=== PATIENT | male | born 1980 | race Caucasian/White ===

== ENCOUNTER 2021-08-03 14:12 | Inpatient (IN) ==
[2021-08-03] MEDS ORDERED: SODIUM CHLORIDE 0.9% 1000ML 1,000 ML IV STA (14:38)
[2021-08-03] MEDS ORDERED: SODIUM CHLORIDE 0.9% 1000ML 1,000 ML IV SCH (14:45)
[2021-08-03 14:46] LABS: Basophils # (auto) 0.01 K/uL (0-0.2); Basophils % (auto) 0.1 %; Hemoglobin 14.2 g/dL (14.0-18.0); Immature Granulocytes # (auto) 0.03 K/uL (0.00-0.02); Immature Granulocytes % (auto) 0.3 %; Lymphocytes # (auto) 0.76 K/uL (1.2-3.4); Lymphocytes % (auto) 6.9 %; Mean Corpuscular Hemoglobin 28.8 pg (25-34); Mean Corpuscular Hgb Conc 34.6 g/dL (32-36); Mean Corpuscular Volume 83.2 fL (80-100); Mean Platelet Volume 9.8 fL (7.4-10.4); Monocytes # (auto) 0.23 K/uL (0.11-0.59); Monocytes % (auto) 2.1 %; Neutrophils # (auto) 9.96 K/uL (1.4-6.5); Neutrophils % (auto) 90.6 %; Platelet Count 206 K/uL (130-400); RDW Coefficient of Variation 12.3 % (11.5-14.5); RDW Standard Deviation 37.4 fL (36.4-46.3); Red Blood Count 4.93 M/uL (4.7-6.1); White Blood Count 10.99 K/uL (4.8-10.8)
[2021-08-03 15:05] LABS: Alanine Aminotransferase 48 U/L (12-78); Albumin Level 2.9 gm/dl (3.4-5.0); Aspartate Aminotransferase 51 U/L (15-37); BUN Creatinine Ratio 19.4 (10-20); Blood Urea Nitrogen 21 mg/dl (7-18); Calcium 8.4 mg/dl (8.5-10.1); Carbon Dioxide 26 mmol/L (21-32); Chloride 103 mmol/L (98-107); Creatinine Clr Calc Pharmacy 110.2 ml/min; Est GFR (African American) 96.5 ml/min; Est GFR (Non-African American) 83.3 ml/min; Glucose 127 mg/dl (70-99); Magnesium 2.2 mg/dl (1.8-2.4); Potassium 3.6 mmol/L (3.5-5.1); Sodium 135 mmol/L (136-145)
--- NOTE | 2021-08-03 15:13 | Emergency Department Note ---
Impression & Plan Syncope and collapse, Pneumonia due to COVID-19 virus, Hypoxia ED Provider Note INFORMANT: Patient ED PROVIDER(S): Colin Morrison MD CHIEF COMPLAINT: Syncope PLAN: Disposition: Admitted Condition: Good Outpatient prescription management: none Referral: None MEDICAL DECISION MAKING: Patient presents to the ER for the third time this week. He has COVID-19. Chest x-ray was performed and revealed that he had slight congestion findings. CT imaging was done yesterday which revealed no evidence of PE. The patient noted a significant period of hypoxia at home. His O2 saturations were borderline in the emergency department. He was treated with IV Decadron. ECG revealed nonspecific changes laterally. Patient has normal cardiac monitoring. He was hydrated. I discussed further management in the hospital. Patient was in agreement. Consultation was made with the hospital service for patient evaluated in ER admitted for further management. Triage Nursing notes reviewed and agree them. Vital Signs: reviewed and remarkable for borderline oxygen levels Differential diagnosis: Vasovagal event, dehydration, infection, hypoglycemia, electrolyte abnormalities, cardiac sources, intracerebral event, pulmonary embolism, sei zure, toxicologic, neurologic, as well as other pathologies. Diagnostics interpreted by me: ECG: Twelve-lead ECG reveals normal sinus rhythm at [address] abnormality laterally. There is no evidence of ST elevation or depression. No PACs or PVCs. Normal QRS. Cardiac Monitoring: Cardiac monitoring ordered by me: The patient was placed on continuous cardiac monitoring and observed. It revealed a normal sinus rhythm at 72 beats per minute without ectopy or evidence of dysrhythmia. Imaging studies: Chest x-ray shows slight progression of his Covid pneumonia. HPI: The patient is a 40 year old male who presents to the Emergency Room with c omplaints of syncope. This started just prior to arrival and is resolved. The patient also notes the following associated symptoms, diaphoresis, shortness of breath, and hypoxia. The patient has been given fluid by EMS for relieving factors. Current pain is rated as 0/10. Patient was diagnosed with Covid. He was in the ER 4 days ago and work-up was unremarkable except for Covid pneumonia. He had an ER visit again yesterday as he had a difficult night 2 nights ago. He had negative work-up except for the Covid pneumonia. He was not hypoxic. CT angiogram did not reveal any evidence of PE. He stated that he was feeling better after discharge. Today he got up and felt short of breath and broke out in a sweat. He noted his pulse ox dipped down into the 80s. He became more lightheaded and sweaty. He passed out. Patient states after passing out his pulse oximetry was in the 70s. Pt denies LOC, headache, fevers, chills, diaphoresis, visual changes, neck pain, chest pain, breathing difficulties, nausea, vomiting, abdominal pain, back pain, melena, hematochezia, urinary symptoms, numbness, weakness, lymphadenopathy, rash, or other complaints. ROS: See above HPI for pertinent positives & negatives. A total of 10 systems reviewed and were otherwise negative. PAST MEDICAL HISTORY:See Below , COVID-19 PAST SURGICAL HISTORY:See Below, FAMILY HISTORY:See Below SOCIAL HISTORY:See Below, HOME MEDICATIONS:See Below ALLERGIES:See Below VITALS:See Below PHYSICAL EXAMINATION: GENERAL: Awake, alert, well-appearing, in no distress HENT: Normocephalic, atraumatic. Oropharynx unremarkable. EYES: Normal conjunctiva. Sclera non-icteric. NECK: Inspection normal. Non-tender. Supple. No nuchal rigidity. FROM. No masses. RESPIRATORY: Few scattered crackles. No wheezes. No rhonchi. Normal respiratory effort. CARDIAC: Normal rate. Normal rhythm. No murmurs. No rubs. Extremities warm and well perfused. Pulses equal. No JVD. GI: Soft, non-distended. No tenderness to palpation. No rebound or guarding. No masses. RECTAL: Deferred. MUSCULOSKELETAL: Atraumatic. Chest examination reveals no tenderness. The back is symmetrical on inspection without obvious abnormality. There is no CVA tenderness to palpation. No joint edema. LOWER EXTREMITIES: Calves are equal size bilaterally and non-tender. No edema. No discoloration. NEURO: Normal sensorium. No sensory or motor deficits noted. SKIN: No rash or jaundice noted. Colin Morrison MD Past Med/Surg History Medical History No significant medical problems Social History Smoking Status: Never smoker Hx Alcohol Use: Yes Alcohol type: beer Hx Substance Use: No Preferred Language: Maori Communication Ability: Effective Continuity Writer Required: No Beliefs That Will Affect Care: None Current Living Situation: Spouse and Family Current Living Situation Comment: 2 girls and . Other Information That Helps Us Care for You: No Feels Safe at Home: Yes Safety Concerns: Feels Safe At This Time Assistive Devices: None Allergies Allergies Allergy/AdvReac Type Severity Reaction Status Date / Time Sulfa (Sulfonamide Allergy Unknown HAPPENED Verified 08/03/21 17:50 Antibiotics) A CHILD SUTURE MATERIAL Allergy Intermediate HAPPENED Uncoded 08/03/21 17:50 WITH KNEE SURGERY-BAD REACTION Home Meds Home Medications Medication Instructions Recorded Confirmed acetaminophen 500 mg tablet 1,000 mg PO Q6H PRN 07/31/21 08/03/21 (Tylenol Extra Strength) ibuprofen 200 mg tablet (Advil) 400 mg PO Q6H PRN 07/31/21 08/03/21 Previous Rx's Medication Instructions Recorded albuterol sulfate 90 mcg/actuation 3 inh INHALATION Q6H #18 g 07/31/21 aerosol inhaler dexamethasone 6 mg tablet 6 mg PO DAILY #6 tab 07/31/21 (Decadron) Results & Data (ED) Vital Signs Vital Signs - 24 hr 08/03/21 14:00 08/03/21 14:38 Temperature 36.9 C Temperature Source Oral Pulse Rate 72 Pulse Rhythm Regular Pulse Strength Normal Respiratory Rate 18 Respiratory Effort / Characteristics Non-Labored Respiratory Depth Normal Blood Pressure 125/60 Blood Pressure Mean 81 Pulse Oximetry 92 93 Oxygen Delivery Method Room Air Sepsis New/Unexplained Change in Mental Status No Sepsis Action Taken by Nursing No Action Required Laboratory Data Result diagrams: 08/04/21 05:50 08/04/21 05:50 Lab Results 08/03/21 08/03/21 08/03/21 Range/Units 14:36 14:36 14:36 WBC 10.99 H (4.8-10.8) K/uL RBC 4.93 (4.7-6.1) M/uL Hgb 14.2 (14.0-18.0) g/dL Hct 41.0 L (42-52) % MCV 83.2 (80-100) fL MCH 28.8 (25-34) pg MCHC 34.6 (32-36) g/dL RDW Std Deviation 37.4 (36.4-46.3) fL RDW Coeff of Ayana 12.3 (11.5-14.5) % Plt Count 206 (130-400) K/uL MPV 9.8 (7.4-10.4) fL Immature Gran % (Auto) 0.3 % Neut % (Auto) 90.6 % Lymph % (Auto) 6.9 % Osborne % (Auto) 2.1 % Eos % (Auto) 0.0 % Baso % (Auto) 0.1 % Neut # (Auto) 9.96 H (1.4-6.5) K/uL Lymph # (Auto) 0.76 L (1.2-3.4) K/uL Osborne # (Auto) 0.23 (0.11-0.59) K/uL Eos # (Auto) 0.00 (0-0.5) K/uL Baso # (Auto) 0.01 (0-0.2) K/uL Immature Gran # (Auto) 0.03 H (0.00-0.02) K/uL Sodium 135 L (136-145) mmol/L Potassium 3.6 (3.5-5.1) mmol/L Chloride 103 (98-107) mmol/L Carbon Dioxide 26 (21-32) mmol/L Anion Gap 6.0 (3-11) BUN 21 H (7-18) mg/dl Creatinine 1.09 (0.6-1.4) mg/dl Est Cr Clr Drug Dosing 110.2 ml/min Est GFR ( Amer) 96.5 ml/min Est GFR (Non-Af Amer) 83.3 ml/min BUN/Creatinine Ratio 19.4 (10-20) Glucose 127 H (70-99) mg/dl Calcium 8.4 L (8.5-10.1) mg/dl Magnesium 2.2 (1.8-2.4) mg/dl Total Bilirubin 0.8 (0.2-1) mg/dl AST 51 H (15-37) U/L ALT 48 (12-78) U/L Alkaline Phosphatase 62 (45-117) U/L Troponin I < 0.015 (0-0.045) ng/ml Total Protein 6.5 (6.4-8.2) gm/dl Albumin 2.9 L (3.4-5.0) gm/dl Globulin 3.6 (2.5-4.0) gm/dl Albumin/Globulin Ratio 0.8 L (0.9-2) Procalcitonin 0.26 (0-0.5) ng/ml TSH 2.410 (0.300-4.500) uIu/ml Urine Color Urine Appearance (Clear) Urine pH (4.5-7.5) Ur Specific [place] (1.000-1.030) Urine Protein (Negative) Urine Glucose (UA) (Negative) Urine Ketones (Negative) Urine Blood (Negative) Urine Nitrite (Negative) Urine Bilirubin (Negative) Urine Urobilinogen (Negative) Ur Leukocyte Esterase (Negative) Urine WBC (Auto) (0-5) /hpf Urine RBC (Auto) (0-4) /hpf U Hyaline Cast (Auto) (0-5) /lpf U Epithel Cells (Auto) (0-5) /lpf Urine Bacteria (Auto) (Negative) Ur Renal Epithelial Cell (0-5) /lpf COVID-19 Eval Order SARS-CoV-2 (PCR) (Negative) 08/03/21 08/03/21 08/03/21 Range/Units 16:26 16:26 16:36 WBC (4.8-10.8) K/uL RBC (4.7-6.1) M/uL Hgb (14.0-18.0) g/dL Hct (42-52) % MCV (80-100) fL MCH (25-34) pg MCHC (32-36) g/dL RDW Std Deviation (36.4-46.3) fL RDW Coeff of Ayana (11.5-14.5) % Plt Count (130-400) K/uL MPV (7.4-10.4) fL Immature Gran % (Auto) % Neut % (Auto) % Lymph % (Auto) % Osborne % (Auto) % Eos % (Auto) % Baso % (Auto) % Neut # (Auto) (1.4-6.5) K/uL Lymph # (Auto) (1.2-3.4) K/uL Osborne # (Auto) (0.11-0.59) K/uL Eos # (Auto) (0-0.5) K/uL Baso # (Auto) (0-0.2) K/uL Immature Gran # (Auto) (0.00-0.02) K/uL Sodium (136-145) mmol/L Potassium (3.5-5.1) mmol/L Chloride (98-107) mmol/L Carbon Dioxide (21-32) mmol/L Anion Gap (3-11) BUN (7-18) mg/dl Creatinine (0.6-1.4) mg/dl Est Cr Clr Drug Dosing ml/min Est GFR ( Amer) ml/min Est GFR (Non-Af Amer) ml/min BUN/Creatinine Ratio (10-20) Glucose (70-99) mg/dl Calcium (8.5-10.1) mg/dl Magnesium (1.8-2.4) mg/dl Total Bilirubin (0.2-1) mg/dl AST (15-37) U/L ALT (12-78) U/L Alkaline Phosphatase (45-117) U/L Troponin I (0-0.045) ng/ml Total Protein (6.4-8.2) gm/dl Albumin (3.4-5.0) gm/dl Globulin (2.5-4.0) gm/dl Albumin/Globulin Ratio (0.9-2) Procalcitonin (0-0.5) ng/ml TSH (0.300-4.500) uIu/ml Urine Color Dark Yellow Urine Appearance Clear (Clear) Urine pH 6.0 (4.5-7.5) Ur Specific [place] 1.029 (1.000-1.030) Urine Protein Trace H (Negative) Urine Glucose (UA) Negative (Negative) Urine Ketones Trace H (Negative) Urine Blood Negative (Negative) Urine Nitrite Negative (Negative) Urine Bilirubin Negative (Negative) Urine Urobilinogen Negative (Negative) Ur Leukocyte Esterase Negative (Negative) Urine WBC (Auto) 1-5 (0-5) /hpf Urine RBC (Auto) 5-10 H (0-4) /hpf U Hyaline Cast (Auto) 0 (0-5) /lpf U Epithel Cells (Auto) >30 H (0-5) /lpf Urine Bacteria (Auto) Negative (Negative) Ur Renal Epithelial Cell 0-5 (0-5) /lpf COVID-19 Eval Order Covid19 at [facility] SARS-CoV-2 (PCR) POSITIVE A* (Negative) Administered Medications Albuterol (Albuterol Hfa 8 Gm Inhaler) 3 puffs INH QIDR JAMES Stop: 09/03/21 10:59 Last Admin: 08/04/21 20:03 Dose: 3 puffs Documented by: [id number] Admin: 08/04/21 15:37 Dose: 3 puffs Documented by: [id number] Admin: 08/04/21 11:24 Dose: 3 puffs Documented by: [id number] Calcium Carbonate (Calcium Carbonate 500 Mg Chewable Tab) 1,000 mg PO TID PRN PRN Reason: Indigestion Stop: 09/03/21 12:03 Last Admin: 08/04/21 20:51 Dose: 1,000 mg Documented by: [id number] Admin: 08/04/21 12:10 Dose: 1,000 mg Documented by: [id number] Enoxaparin Sodium (Enoxaparin Inj 40 Mg/0.4 Ml Syr) 40 mg SQ Q12H JAMES Stop: 09/03/21 20:59 Last Admin: 08/04/21 20:54 Dose: 40 mg Documented by: [id number] Furosemide (Furosemide 40 Mg/4 Ml Vial) 40 mg IV DAILY JAMES Stop: 09/03/21 14:59 Last Admin: 08/04/21 16:23 Dose: 40 mg Documented by: [id number] Guaifenesin (Guaifenesin 600 Mg Tabcr) 1,200 mg PO Q12 JAMES Stop: 09/03/21 20:59 Last Admin: 08/04/21 20:54 Dose: 1,200 mg Documented by: [id number] Dexamethasone 6 mg/ Syringe 1.5 mls @ 1 mls/min IV DAILY JAMES Stop: 08/10/21 08:59 Last Admin: 08/04/21 09:34 Dose: 1 mls/min Documented by: [id number] Pantoprazole Sodium (Pantoprazole 40 Mg Tab) 40 mg PO QAM JAMES Stop: 08/08/21 14:59 Last Admin: 08/04/21 17:31 Dose: 40 mg Documented by: [id number] Discontinued Medications Albuterol (Albuterol Hfa 8 Gm Inhaler) 3 puffs INH Q6R JAMES Stop: 09/03/21 00:59 Last Admin: 08/04/21 07:20 Dose: 3 puffs Documented by: [id number] Admin: 08/03/21 23:32 Dose: 3 puffs Documented by: [id number] Calcium Carbonate (Calcium Carbonate 500 Mg Chewable Tab) Confirm Administered Dose 1,000 mg .ROUTE .STK-MED ONE Stop: 08/04/21 12:08 Last Admin: 08/04/21 12:48 Dose: Not Given Documented by: [id number] Dexamethasone Sodium Phosphate (DexamethasonePf 10 Mg/Ml Vial) 6 mg IV NOW ONE Stop: 08/03/21 17:14 Last Admin: 08/03/21 17:30 Dose: 6 mg Documented by: [id number] Heparin Sodium (Porcine) (Heparin Sod 5,000 Unit/0.5 Ml Vial) 5,000 units SQ Q12 JAMES Stop: 09/02/21 22:37 Last Admin: 08/04/21 09:33 Dose: 5,000 units Documented by: [id number] Admin: 08/04/21 00:41 Dose: 5,000 units Documented by: [id number] Sodium Chloride (Nss 1000ml) 1,000 mls @ 999 mls/hr IV .Q1H1M JAMES Stop: 08/03/21 15:45 Last Infusion: 08/03/21 16:32 Dose: 0 mls/hr Documented by: [id number] Admin: 08/03/21 15:30 Dose: 999 mls/hr Documented by: [id number] Sodium Chloride (Nss 1000ml) 1,000 mls @ 125 mls/hr IV .Q8H STA Stop: 08/03/21 22:37 Last Infusion: 08/04/21 10:08 Dose: 0 mls/hr Documented by: [id number] Admin: 08/03/21 16:40 Dose: 125 mls/hr Documented by: [id number] Sodium Chloride (Nss 1000ml) 1,000 mls @ 125 mls/hr IV .Q8H JAMES Stop: 08/04/21 18:14 Last Infusion: 08/04/21 16:03 Dose: 0 mls/hr Documented by: [id number] Admin: 08/04/21 09:33 Dose: 125 mls/hr Documented by: [id number] Infusion: 08/04/21 07:29 Dose: 125 mls/hr Documented by: [id number] Admin: 08/03/21 23:29 Dose: 125 mls/hr Documented by: [id number] Infusion: 08/03/21 19:52 Dose: 0 mls/hr Documented by: [id number] Admin: 08/03/21 19:48 Dose: 125 mls/hr Documented by: [id number] Remdesivir 200 mg/ Sodium (Chloride) 250 mls @ 125 mls/hr IV ONE STA; Protocol Stop: 08/04/21 15:55 Last Infusion: 08/04/21 18:31 Dose: 0 mls/hr Documented by: [id number] Admin: 08/04/21 16:03 Dose: 125 mls/hr Documented by: [id number] Sodium Chloride (Sodium Chloride 0.9% 10ml Flush) 30 ml IV ONE ONE Stop: 08/04/21 16:01 Last Admin: 08/04/21 18:31 Dose: 30 ml Documented by: [id number] Discharge Plan Visit Data Chief Complaint: Syncope ED Provider: Colin Morrison Discharge Problem: Syncope and collapse, Pneumonia due to COVID-19 virus, Hypoxia Patient Disposition: Admitted As Inpatient Discharge Instructions Interventions: ED Discharge Assessment Last Done: 08/03/21 22:03
[2021-08-03 15:16] LABS: Albumin Globulin Ratio 0.8 (0.9-2); Alkaline Phosphatase 62 U/L (45-117); Bilirubin,Total 0.8 mg/dl (0.2-1); Globulin 3.6 gm/dl (2.5-4.0); Total Protein 6.5 gm/dl (6.4-8.2); Troponin I < 0.015 ng/ml (0-0.045)
--- NOTE | 2021-08-03 15:16 | XRay Report ---
XR chest 1V portable CLINICAL HISTORY: syncope, covid pneumonia COMPARISON STUDY: Chest radiograph July 31, 2021. Chest CT August 02, 2021. FINDINGS: Lung volumes are normal. Moderate bilateral airspace opacities have slightly progressed sin ce prior chest radiograph and chest CT.. There is no pneumothorax or pleural effusion. Cardiac size i s normal. Mediastinal contours are normal. There is no evidence for pulmonary edema. IMPRESSION: Slight progression of moderate bilateral airspace opacities consistent with viral pneumo juana. ACT 112: Negative or not required by law. Electronically signed by: Kwabena Alvarez M.D. 08/03/2021 3:15 PM
[2021-08-03 16:56] LABS: Appearance Urine Clear (Clear); Bacteria Urine Automated Negative (Negative); Bilirubin Urine Negative (Negative); Blood Urine Negative (Negative); Color Urine Dark Yellow; Epithelial Cell Urine Auto >30 /lpf (0-5); Glucose Urine UA Negative (Negative); Ketones Urine Trace (Negative); Leukocyte Esterase Urine Negative (Negative); Nitrite Urine Negative (Negative); Protein Urine Trace (Negative); Specific Gravity Urine 1.029 (1.000-1.030); Urobilinogen Urine Negative (Negative)
[2021-08-03 17:07] LABS: Cast Urine Automated 0 /lpf (0-5)
[2021-08-03 17:08] LABS: Renal Epithelial Cells Urine 0-5 /lpf (0-5)
[2021-08-03] MEDS ORDERED: dexAMETHasone**PF** 10 MG/ML VIAL IV ONE (17:13)
--- NOTE | 2021-08-03 17:23 | History & Physical Report ---
Date of Service August 03, 2021 Assessment & Plan (1) Pneumonia due to COVID-19 virus: Plan: - COVID-19 positive - Procalcitonin, blood culture x 2, LA, LDH, ferritin, Phos ordered as were not initially drawn - Lymphocytes 0.76, neutrophils 9.96 - CXR reviewed: showing slight progression of bilateral opacities suggestive of viral pneumonia - O2 sats at 98% on room air currently, patient was noted to be hypoxic at home in the 70s during his syncopal episode per his report. - WBC 11k - Decadron 6 mg IV daily. Has received 4 days of Decadron so far at home via p.o., will continue x6 days -Patient does not meet requirements for remdesivir or monoclonal antibody without oxygen needs. -Patient is unvaccinated -Patient is willing to be intubated in the event that he would require such (2) Syncope and collapse: Plan: -Check 2D echo - Mag 2.2 on admission, TSH 2.41 - EKG reviewed without acute ST wave changes, no signs of ischemia. -Continue on NSS at 125 x 3 L, BUN and creatinine slightly elevated at 1.09/21 respectively, no baseline in the chart to review -Follow with a.m. labs (3) Hypoxia: Plan: -Currently he is not hypoxic here however noted to be in the low 70s upon EMS arrival in the field -Currently not requiring supplemental O2, he will require a two-step prior to discharge to determine if he requires oxygen at home (4) Hyponatremia: Plan: -Likely secondary to acute dehydration, continue IV fluids as above, monitor with a.m. labs (5) COVID-19: Plan: -As above, acute DVT prophylaxis: - teds, scds, heparin subq CODE: Full code Dispo: From home, likely to remain in the hospital x 1-2 days History of Present Illness Primary Care Provider: Sana Rojas MD This is a 40 yo M without significant medical history who is unvaccinated for COVID-19 and contracted the virus. He developed symptoms on 07/25, with cough with mucous and high grade fever. Pt had a covid test done at home and resulted 07/27 as positive. Pt was seen for the first time in the ER on 07/31 due to worsening shortness of breath and was given decadron steroid pack and sent home as he was not hypoxic at that time. He then represented to the ER on 08/02 with chest pressure and worsening shortness of breath. He was not hypoxic, was in NSR during entire ER stay, and CTA was conducted to rule out PE and was negative. He was taking decardon and using a albuterol inhaler for management of his symptoms. Overnight he slept well, and felt he may be improving, but upon waking up was cool with a temp of 96.0. His pulse was low at that point. He noticed his pulse ox was at 92% at the lowest at home. Pt was walking ~10 feet today, felt SOB, sat down and he passed out for a few seconds. Denies trauma to the head or other injury. The event was witnessed by his . Patient was noted to have O2 sats in the 70s at that point in time, and she called EMS. Here in the ER he maintained sats at 93% on room air. He was given IV Decadron in the ER today. Pt lives at home with , two small children (ages 12 and 8). None of his family members have symptoms and are isolated. is vaccinated. He is unvaccinated. Family Hx: no known family hx of heart issues, stroke, DM II, lung diseases. Social Hx: does not drink more than a 6 pack of beer over course of a year. Smoked for a few years in college but does not smoke anymore. Denies illicit drug use. Allergies Allergy/AdvReac Type Severity Reaction Status Date / Time Sulfa (Sulfonamide Allergy Unknown HAPPENED Verified 08/03/21 17:50 Antibiotics) A CHILD SUTURE MATERIAL Allergy Intermediate HAPPENED Uncoded 08/03/21 17:50 WITH KNEE SURGERY-BAD REACTION Home Medications Medication Instructions Recorded Confirmed Type acetaminophen 500 mg tablet 1,000 mg PO Q6H PRN 07/31/21 08/03/21 History (Tylenol Extra Strength) albuterol sulfate 90 mcg/actuation 3 inh INHALATION Q6H #18 g 07/31/21 08/03/21 Rx aerosol inhaler dexamethasone 6 mg tablet 6 mg PO DAILY #6 tab 07/31/21 08/03/21 Rx (Decadron) ibuprofen 200 mg tablet (Advil) 400 mg PO Q6H PRN 10/05/21 10/08/21 History Past Med/Surg History Medical History No significant medical problems Social History Smoking Status: Never smoker Preferred Language: Mauritian Feels Safe at Home: Yes Review of Systems Review of Systems: Constitutional: + fever, sweats and chills Eyes: No diplopia, no worsening or blurred vision ENT: normal hearing, no trouble swallowing, no loss of taste or smell Respiratory: +cough, sputum, dyspnea at rest and on exertion Cardiovascular: No chest pain, tightness or palpitations Abdomen: No pain, nausea, vomiting, diarrhea or constipation Musculoskeletal: No joint pain, calf pain, swelling Neurologic: + generalized weakness, numbness/tingling, or balance problems Psychiatric: No anxiety or depression Skin: No rash or itch Physical Exam Physical Exam: Please refer to attending addendum for physical as I did not see the patient due to COVID-19 positive. Results & Data Results & Data ([facility]) Vital Signs (Past 12 Hours) Vital Signs Temp Pulse Pulse Resp BP BP Pulse Ox 08/03/21 17:10 65 18 122/69 98 08/03/21 17:00 67 14 122/69 96 08/03/21 16:00 67 20 128/71 99 08/03/21 15:30 67 19 123/70 96 08/03/21 15:00 69 19 128/72 96 08/03/21 14:38 93 08/03/21 14:00 36.9 C 72 18 125/60 92 Diagnostic Findings Chest X-Ray 08/03/21 14:38 XR chest 1V portable CLINICAL HISTORY: syncope, covid pneumonia COMPARISON STUDY: Chest radiograph July 31, 2021. Chest CT August 02, 2021. FINDINGS: Lung volumes are normal. Moderate bilateral airspace opacities have slightly progressed since prior chest radiograph and chest CT.. There is no pneumothorax or pleural effusion. Cardiac size is normal. Mediastinal contours are normal. There is no evidence for pulmonary edema. IMPRESSION: Slight progression of moderate bilateral airspace opacities consistent with viral pneumonia. ACT 112: Negative or not required by law. Electronically signed by: Kwabena Alvarez M.D. 08/03/2021 3:15 PM ECG Additional Comments: 03-AUG-2021 14:25:11 [facility]-EDSTAT ROUTINE RETRIEVAL Normal sinus rhythm Possible Left atrial enlargement Nonspecific T wave abnormality Abnormal ECG When compared with ECG of 02-AUG-2021 11:22, (unconfirmed) No significant change was found 25mm/s 10mm/mV 150Hz 9.0.9 12SL 241 VIVI: 11 Unconfirmed Vent. rate 69 BPM CA interval 150 ms QRS duration 90 ms QT/QTc 386/413 ms Code Status & VTE Plan Code Status Full code Supervising Physician Co-Signing Physician Notes Attending addendum The patient was seen and examined in the emergency room He has been complaining of fever, cough with shortness of breath for the last week or so Has been to ER 2-3 times prior to this visit Covid 19 has been positive without any desaturation On examination Flushed facies In distress Chestminimal crackles at the bases HeartS1-S2, regular Abdomenmildly distended, tender at epigastrium, bowel sounds present Extremitiesno edema Admission labs, imaging studies reviewed Has COVID-19 infection without desaturation Fever likely secondary to COVID-19 infection Agree with assessment and plan as outlined above by NORBERT Hodge Dr
[2021-08-03] MEDS: SODIUM CHLORIDE 0.9% 1000ML 1,000 ML IV SCH ×2 (19:48→23:29)
[2021-08-03] MEDS ORDERED: ONDANSETRON INJ 2 MG/ML 2 ML VIAL IV PRN (22:38)
[2021-08-03] MEDS ORDERED: ACETAMINOPHEN 500 MG TAB PO PRN (22:47)
[2021-08-03 22:59] LABS: C Reactive Protein 9.86 mg/dl (0-0.29); Ferritin 1893.6 ng/ml (8-388); Phosphorus 2.9 mg/dl (2.5-4.9)
[2021-08-03] MEDS: ALBUTEROL HFA 8 GM INHALER INH SCH (23:32)
[2021-08-04] MEDS: HEPARIN SOD 5,000 UNIT/0.5 ML VIAL SQ SCH ×2 (00:41→09:33)
[2021-08-04 06:24] LABS: Hemoglobin 13.7 g/dL (14.0-18.0); Mean Corpuscular Hemoglobin 28.9 pg (25-34); Mean Corpuscular Hgb Conc 35.1 g/dL (32-36); Mean Corpuscular Volume 82.3 fL (80-100); Mean Platelet Volume 10.2 fL (7.4-10.4); Platelet Count 242 K/uL (130-400); RDW Coefficient of Variation 12.5 % (11.5-14.5); RDW Standard Deviation 37.9 fL (36.4-46.3); Red Blood Count 4.74 M/uL (4.7-6.1); White Blood Count 10.71 K/uL (4.8-10.8)
[2021-08-04 07:01] LABS: Albumin Globulin Ratio 0.6 (0.9-2); Albumin Level 2.5 gm/dl (3.4-5.0); BUN Creatinine Ratio 19.5 (10-20); Bilirubin,Total 0.9 mg/dl (0.2-1); Calcium 8.4 mg/dl (8.5-10.1); Creatinine Clr Calc Pharmacy 144.5 ml/min; Est GFR (African American) 125.8 ml/min; Est GFR (Non-African American) 108.5 ml/min; Globulin 3.9 gm/dl (2.5-4.0); Magnesium 2.2 mg/dl (1.8-2.4); Potassium 4.2 mmol/L (3.5-5.1); Total Protein 6.4 gm/dl (6.4-8.2)
--- NOTE | 2021-08-04 07:06 | Electrocardiogram Report ---
Test Reason : Blood Pressure : / mmHG Vent. Rate : 069 BPM Atrial Rate : 069 BPM P-R Int : 150 ms QRS Dur : 090 ms QT Int : 386 ms P-R-T Axes : 040 030 -01 degrees QTc Int : 413 ms Normal sinus rhythm Possible Left atrial enlargement Nonspecific T wave abnormality Abnormal ECG When compared with ECG of 02-AUG-2021 11:22, (unconfirmed) No significant change was found Confirmed by Vijay Castillo ([id number]) on 08/04/2021 7:05:32 AM Referred By: Confirmed By:Sam Castillo
[2021-08-04 07:18] LABS: Estimated Average Glucose 117 mg/dl; Hemoglobin A1C 5.7 % (4.5-5.6)
[2021-08-04] MEDS: ALBUTEROL HFA 8 GM INHALER INH SCH ×4 (07:20→20:03)
[2021-08-04] MEDS: SODIUM CHLORIDE 0.9% 1000ML 1,000 ML IV SCH (09:33)
[2021-08-04] MEDS: dexAMETHasone 6 MG in SYRINGE 0 ML IV SCH (09:34)
[2021-08-04] MEDS ORDERED: CALCIUM CARBONATE 500 MG CHEWABLE TAB ONE (12:07)
[2021-08-04] MEDS: CALCIUM CARBONATE 500 MG CHEWABLE TAB PO PRN ×2 (12:10→20:51)
[2021-08-04] MEDS ORDERED: REMDESIVIR 200 MG in SODIUM CHLORIDE 0.9% 210 ML IV STA (13:56)
--- NOTE | 2021-08-04 14:52 | Hospitalist Progress Note ---
Date of Service August 04, 2021 Assessment & Plan (1) Pneumonia due to COVID-19 virus: Plan: -Not vaccinated for COVID-19 - COVID-19 positive on 07/27/2021 and also repeat test on admission -Was seen in ER on with increasing shortness of breath and was given Decad vipul and was sent home - Lymphocytes 0.76, neutrophils 9.96, CRP level is 9.86 and procalcitonin is normal as of 08/04/2021 -Repeat visit on 08/02 with more shortness of breath but was not hypoxic -Was admitted with increasing shortness of breath and as of today requiring up to 5 L of oxygen to maintain saturation - CXR reviewed: showing slight progression of bilateral opacities suggestive of viral pneumonia -Received Decadron 6 mg and will continue -We will give remdesivir and monitor CRP and LFTs -Condition has been deteriorating since admission-May need pulmonary evaluation (2) Syncope and collapse: Plan: -Check 2D echo: LV is normal in size, normal LV wall thickness, EF 60 to 65%, no significant valvular disease - Mag 2.2 on admission, TSH 2.41 - EKG reviewed without acute ST wave changes, no signs of ischemia. -Continue on NSS at 125 x 3 L, BUN and creatinine slightly elevated at 1.09/21 respectively, no baseline in the chart to review -Doubt any arrhythmia as the cause of syncope (3) Hypoxia: Plan: -Currently he is not hypoxic here however noted to be in the low 70s upon EMS arrival in the field -Currently not requiring supplemental O2, he will require a two-step prior to discharge to determine if he requires oxygen at home Currently requiring up to 5 L of oxygen to maintain saturation (4) Hyponatremia: Plan: -Likely secondary to acute dehydration, continue IV fluids as above, monitor with a.m. labs -Minimally low at 134 (5) COVID-19: Plan: -As above, acute DVT prophylaxis: - teds, scds, heparin subq -We will change to Lovenox CODE: Full code Admission and Anticipated Discharge Date Admission Date: August 03, 2021 Subjective 08/04/2021 The patient was seen and examined in telemetry unit and in Covid room He has been more short of breath today and has been requiring up to 5 L of oxygen to maintain saturation Is short of breath at rest and he is flushed Has cough but denies any chest pain Review of Systems Review of Systems: All systems reviewed and are unremarkable except as noted below Physical Exam Physical Exam: Lying in bed with moderate shortness of breath at rest Constitutional: well developed, well nourished, + ill appearing and + obese Eyes: PERRL, conjunctivae normal, anicteric sclerae ENMT: external ear and nose normal, oropharynx normal Neck: trachea midline, no thyromegaly Respiratory: + respiratory distress, + labored breathing and + cough Auscultation: + diminished lung sounds, + crackles (At the bases) and + rales Cardiovascular: Rate/Rhythm: regular rate and regular rhythm; not tachycardic Heart Sounds: normal S1 and normal S2; no murmur Gastrointestinal (Abdomen): Inspection/Auscultation: abdomen not distended Percussion/Palpation: abdomen soft; abdomen nontender Musculoskeletal: No acute arthritis in any joint Neurologic: Alert, awake and oriented x3 Psychiatric: A+Ox3, euthymic affect Results & Data Results & Data ([facility]) Vital Signs (Past 12 Hours) Vital Signs Temp Pulse Pulse Resp BP Pulse Ox 08/04/21 14:08 91 08/04/21 14:04 26 H 89 L 08/04/21 11:27 81 24 88 L 08/04/21 11:07 37.0 C 74 20 129/59 L 90 08/04/21 07:21 80 25 H 92 08/04/21 06:52 37.0 C 83 20 126/81 91 08/04/21 03:00 36.6 C 83 20 119/78 95 Laboratory Results Short CBC 08/03/21 08/04/21 Range/Units 14:36 05:50 WBC 10.99 H 10.71 (4.8-10.8) K/uL Hgb 14.2 13.7 L (14.0-18.0) g/dL Hct 41.0 L 39.0 L (42-52) % Plt Count 206 242 (130-400) K/uL BMP 08/03/21 08/04/21 14:36 05:50 Sodium 135 L 134 L Potassium 3.6 4.2 D Chloride 103 105 Carbon Dioxide 26 22 BUN 21 H 16 Creatinine 1.09 0.83 Glucose 127 H 119 H Calcium 8.4 L 8.4 L Cardiac Enzymes 08/03/21 Range/Units 14:36 Troponin I < 0.015 (0-0.045) ng/ml Liver Function 08/03/21 08/04/21 Range/Units 14:36 05:50 Total Bilirubin 0.8 0.9 (0.2-1) mg/dl AST 51 H 38 H (15-37) U/L ALT 48 40 (12-78) U/L Alkaline Phosphatase 62 62 (45-117) U/L Albumin 2.9 L 2.5 L (3.4-5.0) gm/dl Urine 08/03/21 Range/Units 16:36 Urine Color Dark Yellow Urine Appearance Clear (Clear) Urine pH 6.0 (4.5-7.5) Ur Specific [place] 1.029 (1.000-1.030) Urine Protein Trace H (Negative) Urine Glucose (UA) Negative (Negative) Medications Administered Current Inpatient Medications Acetaminophen (Acetaminophen 500 Mg Tab) 1,000 mg PO Q6H PRN PRN Reason: FEVER/PAIN Stop: 09/02/21 22:46 Albuterol (Albuterol Hfa 8 Gm Inhaler) 3 puffs INH QIDR JAMES Stop: 09/03/21 10:59 Last Admin: 08/04/21 11:24 Dose: 3 puffs Documented by: Calcium Carbonate (Calcium Carbonate 500 Mg Chewable Tab) 1,000 mg PO TID PRN PRN Reason: Indigestion Stop: 09/03/21 12:03 Last Admin: 08/04/21 12:10 Dose: 1,000 mg Documented by: Heparin Sodium (Porcine) (Heparin Sod 5,000 Unit/0.5 Ml Vial) 5,000 units SQ Q12 JAMES Stop: 09/02/21 22:37 Last Admin: 08/04/21 09:33 Dose: 5,000 units Documented by: Sodium Chloride (Nss 1000ml) 1,000 mls @ 125 mls/hr IV .Q8H [facility] Stop: 08/04/21 18:14 Last Admin: 08/04/21 09:33 Dose: 125 mls/hr Documented by: Dexamethasone 6 mg/ Syringe 1.5 mls @ 1 mls/min IV DAILY JAMES Stop: 08/10/21 08:59 Last Admin: 08/04/21 09:34 Dose: 1 mls/min Documented by: Remdesivir 200 mg/ Sodium (Chloride) 250 mls @ 125 mls/hr IV ONE STA; Protocol Stop: 08/04/21 15:55 Remdesivir 100 mg/ Sodium (Chloride) 250 mls @ 250 mls/hr IV Q24H JAMES; Protocol Stop: 08/08/21 12:59 Ondansetron HCl (Ondansetron Inj 2 Mg/Ml 2 Ml Vial) 4 mg IV Q4H PRN PRN Reason: Nausea And Vomiting Stop: 09/02/21 22:37 Sodium Chloride (Sodium Chloride 0.9% 10ml Flush) 30 ml IV Q24H JAMES Stop: 08/08/21 13:01 Sodium Chloride (Sodium Chloride 0.9% 10ml Flush) 30 ml IV ONE ONE Stop: 08/04/21 16:01
[2021-08-04] MEDS ORDERED: FUROSEMIDE 40 MG in SYRINGE 0 ML IV SCH (15:00)
[2021-08-04] MEDS ORDERED: SODIUM CHLORIDE 0.9% 10ML FLUSH IV ONE (16:00)
[2021-08-04] MEDS: FUROSEMIDE 40 MG/4 ML VIAL IV SCH (16:23)
[2021-08-04] MEDS: PANTOprazole 40 MG TAB PO SCH (17:31)
[2021-08-04] MEDS: ENOXAPARIN INJ 40 MG/0.4 ML SYR SQ SCH (20:54)
[2021-08-04] MEDS: guaiFENesin 600 MG TABCR PO SCH (20:54)
[2021-08-05] MEDS: ALBUTEROL HFA 8 GM INHALER INH SCH (07:22)
[2021-08-05 07:49] LABS: Basophils # (auto) 0.01 K/uL (0-0.2); Basophils % (auto) 0.1 %; Hematocrit (blood only) 41.6 % (42-52); Hemoglobin 14.2 g/dL (14.0-18.0); Immature Granulocytes # (auto) 0.04 K/uL (0.00-0.02); Immature Granulocytes % (auto) 0.4 %; Lymphocytes # (auto) 0.94 K/uL (1.2-3.4); Lymphocytes % (auto) 9.1 %; Mean Corpuscular Hemoglobin 28.8 pg (25-34); Mean Corpuscular Hgb Conc 34.1 g/dL (32-36); Mean Corpuscular Volume 84.4 fL (80-100); Mean Platelet Volume 10.2 fL (7.4-10.4); Monocytes # (auto) 0.36 K/uL (0.11-0.59); Monocytes % (auto) 3.5 %; Neutrophils # (auto) 8.96 K/uL (1.4-6.5); Neutrophils % (auto) 86.9 %; Platelet Count 269 K/uL (130-400); RDW Coefficient of Variation 12.6 % (11.5-14.5); RDW Standard Deviation 38.4 fL (36.4-46.3); Red Blood Count 4.93 M/uL (4.7-6.1); White Blood Count 10.31 K/uL (4.8-10.8)
[2021-08-05 08:07] LABS: Albumin Level 2.5 gm/dl (3.4-5.0); BUN Creatinine Ratio 24.9 (10-20); C Reactive Protein 12.3 mg/dl (0-0.29); Calcium 8.8 mg/dl (8.5-10.1); Creatinine Clr Calc Pharmacy 129.6 ml/min; Est GFR (African American) 120.1 ml/min; Est GFR (Non-African American) 103.6 ml/min; Potassium 4.5 mmol/L (3.5-5.1)
[2021-08-05 08:10] LABS: Albumin Globulin Ratio 0.6 (0.9-2); Bilirubin,Total 0.9 mg/dl (0.2-1); Globulin 4.2 gm/dl (2.5-4.0); Total Protein 6.7 gm/dl (6.4-8.2)
[2021-08-05] MEDS: PANTOprazole 40 MG TAB PO SCH (08:26)
[2021-08-05] MEDS: dexAMETHasone 6 MG in SYRINGE 0 ML IV SCH (08:26)
[2021-08-05] MEDS: ENOXAPARIN INJ 40 MG/0.4 ML SYR SQ SCH ×2 (08:26→20:26)
[2021-08-05] MEDS: guaiFENesin 600 MG TABCR PO SCH ×2 (08:26→20:28)
[2021-08-05] MEDS: FUROSEMIDE 40 MG/4 ML VIAL IV SCH (08:29)
[2021-08-05] MEDS ORDERED: ALBUTEROL HFA 8 GM INHALER INH PRN (10:31)
[2021-08-05] MEDS: REMDESIVIR 100 MG in SODIUM CHLORIDE 0.9% 230 ML IV SCH (13:06)
--- NOTE | 2021-08-05 13:24 | Pulmonary Consultation ---
Date of Consultation August 05, 2021 Assessment & Plan (1) Pneumonia due to COVID-19 virus: (2) Hypoxia: (3) SOB (shortness of breath): (4) Cough productive of purulent sputum: 40-year male with no significant past medical history who was admitted to the hospital due to COVID-19 viral pneumonia and acute hypoxemic respiratory failure. Continue current therapies including remdesivir, Decadron, pulmonary toileting, self proning and supplemental oxygen to maintain saturations above 90%. His chest imaging is consistent with COVID-19 viral pneumonia. His CRP is markedly elevated. He has severe disease. I discussed the risks and benefits regarding baricitinib therapy. Patient consents to receiving baricitinib 4 mg daily. Please keep a close eye on his creatinine and LFTs while on remdesivir and baricitinib. He denies any history of tuberculosis exposure. He had a mild dilation of the pulmonary artery trunk on CT chest imaging which is likely secondary to his acute hypoxemic process. Echo did not reveal any evidence of pulmonary hypertension. A repeat CT chest in 3 months can be considered to follow-up on the infiltrates and the pulmonary artery dilation. Continue with as needed IV diuretic therapy. Should he have a significant decline in his respiratory status, recommend consultation with the intensive care unit team. Pulmonary will sign off at this time. Please call with questions. Thank for the consultation. I did trauma counsellor the patient regarding his diagnosis and treatment plan and he expressed understanding. Greater than 50% of the time was spent [id number] with the patient counseling them on their diagnosis and treatment plan. This note was dictated using voice recognition software and may include grammatical errors, extra words, word substitutions and other inaccuracies due to errors in the voice recognition software and differences in speech patterns. History of Present Illness Reason for Consultation: COVID-19 viral pneumonia Attending Physician: Claudia Benitez MD History of Present Illness 40-year-old male with no significant past medical history who was admitted to the hospital on 08/03/2021. He developed symptoms late June including fevers and cough. He had a COVID-19 test was positive on 07/27/2021. He was seen due to worsening shortness of breath. He was in the ER on 3 separate occasions in the past week here at [facility]. He is currently requiring high flow oxygen at 8 L/min. He is proning. His O2 sats range from the high 80s to the low 90s. He notes that he is unvaccinated. His is vaccinated. He has 2 small children. He denies any history of drug or alcohol abuse. He is a non-smoker. He works as a [employer]. His CRP level is currently elevated to 12.30. AST is mildly elevated to 47. Hyponatremia is improved and his sodium level is 136. No significant leukocy tosis seen on labs. Procalcitonin 0.26. He is currently on remdesivir 100 mg daily and Decadron 6 mg daily. He is also receiving 40 mg daily of Lasix. He is complaining of sweating. He has had a cough with productive sputum. He feels less short of breath than he did on initial hospitalization. He had a syncopal event the day of admission while walking. An ambulance was called by his . Echo completed this admission demonstrated an EF of 60 to 65%. No pulmonary hypertension was seen. Chest CTA completed 08/02/2021 demonstrated multifocal groundglass opacities consistent with COVID-19 viral pneumonia. No PE was seen. Chest x-ray 08/03/2021 with mildly increased airspace opacities compared to prior chest x-ray from 07/31. He is 1.5 L positive on fluids since hospital admission. Allergies Allergy/AdvReac Type Severity Reaction Status Date / Time Sulfa (Sulfonamide Allergy Unknown HAPPENED Verified 08/03/21 17:50 Antibiotics) A CHILD SUTURE MATERIAL Allergy Intermediate HAPPENED Uncoded 08/03/21 17:50 WITH KNEE SURGERY-BAD REACTION Home Medications Medication Instructions Recorded Confirmed Type acetaminophen 500 mg tablet 1,000 mg PO Q6H PRN 07/31/21 08/03/21 History (Tylenol Extra Strength) albuterol sulfate 90 mcg/actuation 3 inh INHALATION Q6H #18 g 07/31/21 08/03/21 Rx aerosol inhaler dexamethasone 6 mg tablet 6 mg PO DAILY #6 tab 07/31/21 08/03/21 Rx (Decadron) ibuprofen 200 mg tablet (Advil) 400 mg PO Q6H PRN 07/31/21 08/03/21 History Patient History Medical History (Updated 08/05/21 @ 13:33 by Nestor Godwin MD) Cough productive of purulent sputum No significant medical problems Social History Smoking Status: Never smoker Hx Alcohol Use: Yes Alcohol type: beer Hx Substance Use: No Preferred Language: Swedish Communication Ability: Effective 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 Other Information That Helps Us Care for You: No Feels Safe at Home: Yes Safety Concerns: Feels Safe At This Time Assistive Devices: None Review of Systems Review of Systems: All systems reviewed & are unremarkable except as noted in HPI & below Physical Exam Physical Exam: Constitutional: Patient appears to be of their stated age. Patient is in no apparent distress. Patient is well-developed. Eyes: Pupils are equal round and reactive to light. Conjunctivae are normal. Anicteric sclera. Ears nose, mouth and throat: No obvious facial deformities. Neck: Trachea is midline. Visual inspection is normal. Respiratory: Diminished lung sounds bilaterally. No wheezes. Cardiovascular: Regular rate and rhythm. No murmurs. No edema. Gastrointestinal: Normal bowel sounds, soft, nontender and nondistended. No hepatosplenomegaly noted. Musculoskeletal: No cyanosis. Patient is able to move all extremities. Skin: No rashes, warm dry and intact. Neurologic: No obvious focal neurological deficits seen. Psychiatric: Alert and oriented x3 with a euthymic affect. Results & Data Results & Data ([facility]) Vital Signs (Past 12 Hours) Vital Signs Temp Pulse Pulse Resp BP Pulse Ox 08/05/21 08:37 98.1 F 77 77 26 H 121/71 91 08/05/21 07:22 58 L 22 95 08/05/21 03:00 98.4 F 60 28 H 103/58 L 89 L Laboratory Results Vital signs, labs and imaging personally reviewed PG Care Time/CCT Total # of Minutes Spent Total Time Spent with Patient: Total time spent is greater than 50% in coordination of care (as documented) at patient's floor/unit and/or counseling patient: Coding Level of Care Code 14031 Inpt Consult Level 5 Diagnoses Pneumonia due to COVID-19 virus U07.1; J12.82 Hypoxia R09.02 SOB (shortness of breath) R06.02 Cough productive of purulent sputum R05.8
--- NOTE | 2021-08-05 14:07 | Hospitalist Progress Note ---
Date of Service August 05, 2021 Assessment & Plan (1) Pneumonia due to COVID-19 virus: Plan: -Not vaccinated for COVID-19 - COVID-19 positive on 07/27/2021 and also repeat test on admission -Was seen in ER on with increasing shortness of breath and was given Deca dron and was sent home - Lymphocytes 0.76, neutrophils 9.96, CRP level is 9.86 and procalcitonin is normal as of 08/04/2021 -Repeat visit on 08/02 with more shortness of breath but was not hypoxic -Was admitted with increasing shortness of breath and as of today requiring up to 5 L of oxygen to maintain saturation - CXR reviewed: showing slight progression of bilateral opacities suggestive of viral pneumonia -Received Decadron 6 mg and will continue -We will give remdesivir and monitor CRP and LFTs -Condition has been deteriorating and requiring up to 10 L of oxygen to maintain saturation with CRP increase that 12.30 -Appreciate pulmonary input and recommendation of starting baricitinib -Has been on intravenous dexamethasone, remdesivir and baricitinib -Continue Lasix for now (2) Syncope and collapse: Plan: -Check 2D echo: LV is normal in size, normal LV wall thickness, EF 60 to 65%, no significant valvular disease - Mag 2.2 on admission, TSH 2.41 - EKG reviewed without acute ST wave changes, no signs of ischemia. -Continue on NSS at 125 x 3 L, BUN and creatinine slightly elevated at 1.09/21 respectively, no baseline in the chart to review -Doubt any arrhythmia as the cause of syncope (3) Hypoxia: Plan: -Currently he is not hypoxic here however noted to be in the low 70s upon EMS arrival in the field -Currently not requiring supplemental O2, he will require a two-step prior to discharge to determine if he requires oxygen at home Currently requiring up to 5 L of oxygen to maintain saturation Currently requiring up to 8 L of oxygen to maintain saturation (4) Hyponatremia: Plan: -Likely secondary to acute dehydration, continue IV fluids as above, monitor with a.m. labs -Minimally low at 134 -Has been on Lasix and will monitor PRP (5) COVID-19: Plan: -As above, acute DVT prophylaxis: - teds, scds, heparin subq -We will change to Lovenox CODE: Full code Admission and Anticipated Discharge Date Admission Date: August 03, 2021 Subjective 08/04/2021 The patient was seen and examined in telemetry unit and in Covid room He has been more short of breath today and has been requiring up to 5 L of oxygen to maintain saturation Is short of breath at rest and he is flushed Has cough but denies any chest pain 08/05/2021 The patient was seen and examined in telemetry unit and in the Covid room His condition has been deteriorating and now requiring up to 10 L of oxygen to maintain saturation Has cough with increasing shortness of breath Review of Systems Review of Systems: All systems reviewed and are unremarkable except as noted below Physical Exam Physical Exam: Lying in bed with moderate shortness of breath at rest Constitutional: well developed, well nourished, + ill appearing and + obese Eyes: PERRL, conjunctivae normal, anicteric sclerae ENMT: external ear and nose normal, oropharynx normal Neck: trachea midline, no thyromegaly Respiratory: + respiratory distress, + labored breathing and + cough Auscultation: + diminished lung sounds, + crackles (At the bases) and + rales Cardiovascular: Rate/Rhythm: regular rate and regular rhythm; not tachycardic Heart Sounds: normal S1 and normal S2; no murmur Gastrointestinal (Abdomen): Inspection/Auscultation: abdomen not distended Percussion/Palpation: abdomen soft; abdomen nontender Musculoskeletal: No acute arthritis in any joint Neurologic: Alert, awake and oriented x3. No focal sensory and motor deficit appreciated Psychiatric: A+Ox3, euthymic affect Results & Data Results & Data ([facility]) Vital Signs (Past 12 Hours) Vital Signs Temp Pulse Pulse Resp BP Pulse Ox 08/05/21 08:37 36.7 C 77 77 26 H 121/71 91 08/05/21 07:22 58 L 22 95 08/05/21 03:00 36.9 C 60 28 H 103/58 L 89 L Laboratory Results Short CBC 08/05/21 Range/Units 06:29 WBC 10.31 (4.8-10.8) K/uL Hgb 14.2 (14.0-18.0) g/dL Hct 41.6 L (42-52) % Plt Count 269 (130-400) K/uL BMP 08/05/21 06:29 Sodium 136 Potassium 4.5 Chloride 103 Carbon Dioxide 27 BUN 23 H Creatinine 0.91 Glucose 105 H Calcium 8.8 Liver Function 08/05/21 Range/Units 06:29 Total Bilirubin 0.9 (0.2-1) mg/dl AST 47 H (15-37) U/L ALT 55 (12-78) U/L Alkaline Phosphatase 65 (45-117) U/L Albumin 2.5 L (3.4-5.0) gm/dl Medications Administered Current Inpatient Medications Acetaminophen (Acetaminophen 500 Mg Tab) 1,000 mg PO Q6H PRN PRN Reason: FEVER/PAIN Stop: 09/02/21 22:46 Albuterol (Albuterol Hfa 8 Gm Inhaler) 3 puffs INH Q4R PRN PRN Reason: Shortness Of Breath Or Wheezing Stop: 09/04/21 10:30 Baricitinib (4 Mg Once Daily X14 Days) 4 mg PO DAILY JAMES; Protocol Stop: 08/19/21 13:59 Calcium Carbonate (Calcium Carbonate 500 Mg Chewable Tab) 1,000 mg PO TID PRN PRN Reason: Indigestion Stop: 09/03/21 12:03 Last Admin: 08/04/21 20:51 Dose: 1,000 mg Documented by: Enoxaparin Sodium (Enoxaparin Inj 40 Mg/0.4 Ml Syr) 40 mg SQ Q12H JAMES Stop: 09/03/21 20:59 Last Admin: 08/05/21 08:26 Dose: 40 mg Documented by: Furosemide (Furosemide 40 Mg/4 Ml Vial) 40 mg IV DAILY JAMES Stop: 09/03/21 14:59 Last Admin: 08/05/21 08:29 Dose: 40 mg Documented by: Guaifenesin (Guaifenesin 600 Mg Tabcr) 1,200 mg PO Q12 JAMES Stop: 09/03/21 20:59 Last Admin: 08/05/21 08:26 Dose: 1,200 mg Documented by: Dexamethasone 6 mg/ Syringe 1.5 mls @ 1 mls/min IV DAILY JAMES Stop: 08/10/21 08:59 Last Admin: 08/05/21 08:26 Dose: 1 mls/min Documented by: Remdesivir 100 mg/ Sodium (Chloride) 250 mls @ 250 mls/hr IV Q24H JAMES; Protocol Stop: 08/08/21 12:59 Last Admin: 10/10/21 13:06 Dose: 250 mls/hr Documented by: Ondansetron HCl (Ondansetron Inj 2 Mg/Ml 2 Ml Vial) 4 mg IV Q4H PRN PRN Reason: Nausea And Vomiting Stop: 09/02/21 22:37 Pantoprazole Sodium (Pantoprazole 40 Mg Tab) 40 mg PO QAM [facility] Stop: 08/08/21 14:59 Last Admin: 08/05/21 08:26 Dose: 40 mg Documented by: Sodium Chloride (Sodium Chloride 0.9% 10ml Flush) 30 ml IV Q24H [facility] Stop: 08/08/21 13:01
[2021-08-05] MEDS: SODIUM CHLORIDE 0.9% 10ML FLUSH IV SCH (14:12)
[2021-08-05] MEDS: 4 mg Once Daily x14 days PO SCH (14:12)
[2021-08-06 07:16] LABS: Basophils # (auto) 0.02 K/uL (0-0.2); Basophils % (auto) 0.2 %; Eosinophils # (auto) 0.01 K/uL (0-0.5); Eosinophils % (auto) 0.1 %; Immature Granulocytes # (auto) 0.08 K/uL (0.00-0.02); Immature Granulocytes % (auto) 0.7 %; Lymphocytes # (auto) 1.68 K/uL (1.2-3.4); Mean Corpuscular Hemoglobin 29.2 pg (25-34); Mean Corpuscular Hgb Conc 34.9 g/dL (32-36); Mean Corpuscular Volume 83.8 fL (80-100); Mean Platelet Volume 10.3 fL (7.4-10.4); Monocytes # (auto) 0.52 K/uL (0.11-0.59); Monocytes % (auto) 4.6 %; Neutrophils # (auto) 8.89 K/uL (1.4-6.5); Neutrophils % (auto) 79.4 %; Platelet Count 356 K/uL (130-400); RDW Coefficient of Variation 12.3 % (11.5-14.5); RDW Standard Deviation 37.7 fL (36.4-46.3); Red Blood Count 5.13 M/uL (4.7-6.1)
[2021-08-06 07:34] LABS: Albumin Level 2.6 gm/dl (3.4-5.0); BUN Creatinine Ratio 32.6 (10-20); Calcium 9.1 mg/dl (8.5-10.1); Est GFR (African American) 123.4 ml/min; Est GFR (Non-African American) 106.5 ml/min; Magnesium 2.7 mg/dl (1.8-2.4); Potassium 4.1 mmol/L (3.5-5.1)
[2021-08-06 07:36] LABS: Albumin Globulin Ratio 0.6 (0.9-2); Globulin 4.3 gm/dl (2.5-4.0); Phosphorus 4.1 mg/dl (2.5-4.9); Total Protein 6.9 gm/dl (6.4-8.2)
[2021-08-06] MEDS: guaiFENesin 600 MG TABCR PO SCH ×2 (09:26→19:46)
[2021-08-06] MEDS: PANTOprazole 40 MG TAB PO SCH (09:27)
[2021-08-06] MEDS: 4 mg Once Daily x14 days PO SCH (09:27)
[2021-08-06] MEDS: ENOXAPARIN INJ 40 MG/0.4 ML SYR SQ SCH ×2 (09:28→19:45)
[2021-08-06] MEDS: dexAMETHasone 6 MG in SYRINGE 0 ML IV SCH (09:36)
[2021-08-06] MEDS: FUROSEMIDE 40 MG/4 ML VIAL IV SCH (09:39)
[2021-08-06] MEDS: REMDESIVIR 100 MG in SODIUM CHLORIDE 0.9% 230 ML IV SCH (12:07)
[2021-08-06] MEDS: SODIUM CHLORIDE 0.9% 10ML FLUSH IV SCH (13:19)
--- NOTE | 2021-08-06 14:39 | Hospitalist Progress Note ---
Date of Service August 06, 2021 Assessment & Plan (1) Pneumonia due to COVID-19 virus: Plan: -Not vaccinated for COVID-19 - COVID-19 positive on 07/27/2021 and also repeat test on admission -Was seen in ER on with increasing shortness of breath and was given Deca dron and was sent home - Lymphocytes 0.76, neutrophils 9.96, CRP level is 9.86 and procalcitonin is normal as of 08/04/2021 -Repeat visit on 08/02 with more shortness of breath but was not hypoxic -Was admitted with increasing shortness of breath and as of today requiring up to 5 L of oxygen to maintain saturation - CXR reviewed: showing slight progression of bilateral opacities suggestive of viral pneumonia -Continue with remdesivir/Decadron. Did receive baricitinib. Appreciate pulmonary medicine input. Continue with IV Lasix 40 mg daily. Continue to monitor ins and outs along with daily weights. (2) Syncope and collapse: Plan: -Check 2D echo: LV is normal in size, normal LV wall thickness, EF 60 to 65%, no significant valvular disease - Mag 2.2 on admission, TSH 2.41 - EKG reviewed without acute ST wave changes, no signs of ischemia. -Remains bradycardic. Denies any episodes of dizziness. We will continue to monitor. (3) Hypoxia: Plan: Currently remains on 8 L of nasal cannula. Reports shortness of breath is improved. (4) Hyponatremia: Plan: -Likely secondary to acute dehydration, continue IV fluids as above, monitor with a.m. labs -Minimally low at 134 -Has been on Lasix and will monitor PRP (5) COVID-19: Plan: -As above, acute DVT prophylaxis: - teds, scds, Lovenox CODE: Full code Admission and Anticipated Discharge Date Admission Date: August 03, 2021 Subjective Doing okay this morning. States he feels better reports shortness of breath is better. Does have nonproductive cough. Appetite is improving along with taste. Currently on 8 L of nasal cannula. Review of Systems Review of Systems: All systems reviewed & are unremarkable except as noted in HPI & below Physical Exam Physical Exam: General: A&Ox3 HENT: NCAT, MMM, EOMI Eyes: PERRLA Neck: Supple, normal range of motion CVS: normal rate and rhythm Resp: b/l good breath sounds Abdomen: Soft, ND/NT, +BS Extremities: No c/c/e Neuro: face symmetric, no gross focal deficit appreciated Skin: warm and dry MSK: no joint swelling/erythema Results & Data Results & Data ([facility]) Vital Signs (Past 12 Hours) Vital Signs Temp Pulse Pulse Pulse Resp BP Pulse Ox 08/06/21 11:00 37.0 C 47 L 19 116/70 95 08/06/21 10:00 53 L 98 08/06/21 08:00 45 L 95 08/06/21 07:23 36.9 C 59 L 18 108/56 L 92 08/06/21 07:00 43 L 89 L 08/06/21 03:55 36.6 C 64 20 109/72 92
[2021-08-07 06:41] LABS: Calcium 8.6 mg/dl (8.5-10.1); Creatinine Clr Calc Pharmacy 115.7 ml/min; Est GFR (African American) 115.4 ml/min; Est GFR (Non-African American) 99.6 ml/min
[2021-08-07] MEDS ORDERED: SODIUM CHLORIDE 0.65% NA SOLN 45 ML (OCEAN) PRN (09:12)
[2021-08-07] MEDS: guaiFENesin 600 MG TABCR PO SCH ×2 (09:16→20:35)
[2021-08-07] MEDS: PANTOprazole 40 MG TAB PO SCH (09:17)
[2021-08-07] MEDS: ENOXAPARIN INJ 40 MG/0.4 ML SYR SQ SCH ×2 (09:18→20:36)
[2021-08-07] MEDS: dexAMETHasone 6 MG in SYRINGE 0 ML IV SCH (09:23)
[2021-08-07] MEDS: 4 mg Once Daily x14 days PO SCH (09:50)
[2021-08-07] MEDS: FUROSEMIDE 40 MG/4 ML VIAL IV SCH (09:51)
[2021-08-07] MEDS: REMDESIVIR 100 MG in SODIUM CHLORIDE 0.9% 230 ML IV SCH (12:07)
[2021-08-07 12:08] LABS: Basophils # (auto) 0.01 K/uL (0-0.2); Basophils % (auto) 0.1 %; Eosinophils # (auto) 0.02 K/uL (0-0.5); Eosinophils % (auto) 0.2 %; Hematocrit (blood only) 43.5 % (42-52); Hemoglobin 15.5 g/dL (14.0-18.0); Immature Granulocytes # (auto) 0.14 K/uL (0.00-0.02); Immature Granulocytes % (auto) 1.2 %; Lymphocytes # (auto) 0.67 K/uL (1.2-3.4); Lymphocytes % (auto) 5.5 %; Mean Corpuscular Hemoglobin 29.3 pg (25-34); Mean Corpuscular Volume 82.2 fL (80-100); Monocytes % (auto) 4.1 %; Neutrophils # (auto) 10.76 K/uL (1.4-6.5); Neutrophils % (auto) 88.9 %; Platelet Count 377 K/uL (130-400); RDW Coefficient of Variation 12.2 % (11.5-14.5); RDW Standard Deviation 36.4 fL (36.4-46.3); Red Blood Count 5.29 M/uL (4.7-6.1)
[2021-08-07 12:49] LABS: Mean Corpuscular Hgb Conc 35.6 g/dL (32-36)
[2021-08-07] MEDS: SODIUM CHLORIDE 0.9% 10ML FLUSH IV SCH (13:21)
[2021-08-07] MEDS ORDERED: COUGH DROP (SUGAR FREE) LOZ 24 LOZ/1 BOX BUCCAL ONE (13:26)
--- NOTE | 2021-08-07 14:08 | Hospitalist Progress Note ---
Date of Service August 07, 2021 Assessment & Plan (1) Pneumonia due to COVID-19 virus: Plan: -Not vaccinated for COVID-19 - COVID-19 positive on 07/27/2021 and also repeat test on admission -Was seen in ER on with increasing shortness of breath and was given Deca dron and was sent home - Lymphocytes 0.76, neutrophils 9.96, CRP level is 9.86 and procalcitonin is normal as of 08/04/2021 -Repeat visit on 08/02 with more shortness of breath but was not hypoxic -Was admitted with increasing shortness of breath and as of today requiring up to 5 L of oxygen to maintain saturation - CXR reviewed: showing slight progression of bilateral opacities suggestive of viral pneumonia -Continue with remdesivir/Decadron. - C/w baricitinib. Appreciate pulmonary medicine input. Continue with IV Lasix 40 mg daily. Continue to monitor ins and outs along with daily weights. (2) Syncope and collapse: Plan: -Check 2D echo: LV is normal in size, normal LV wall thickness, EF 60 to 65%, no significant valvular disease - Mag 2.2 on admission, TSH 2.41 - EKG reviewed without acute ST wave changes, no signs of ischemia. (3) Hypoxia: Plan: Currently remains on 10 L of nasal cannula. Reports shortness of breath is improved. (4) Hyponatremia: Plan: -Likely secondary to acute dehydration, continue IV fluids as above, monitor with a.m. labs -Today at 133 -Has been on Lasix and will monitor PRP (5) COVID-19: Plan: -As above, acute DVT prophylaxis: - teds, scds, Lovenox CODE: Full code Admission and Anticipated Discharge Date Admission Date: August 03, 2021 Subjective Patient had a rough night. He was struggling to sleep last night due to anxiety and persistent productive cough. She is also reported to have nasal bleeding reports he had a small clot. This morning patient is on 10 L of nasal cannula. Reports he feels better. Shortness of breath is better. However he does have persistent productive cough. Reports appetite is improving. Rest of the review of system is negative. Review of Systems Review of Systems: All systems reviewed & are unremarkable except as noted in HPI & below Physical Exam Physical Exam: General: A&Ox3 HENT: NCAT, MMM, EOMI Eyes: PERRLA Neck: Supple, normal range of motion CVS: normal rate and rhythm Resp: b/l good breath sounds Abdomen: Soft, ND/NT, +BS Extremities: No c/c/e Neuro: face symmetric, no gross focal deficit appreciated Skin: warm and dry MSK: no joint swelling/erythema Results & Data Results & Data ([facility]) Vital Signs (Past 12 Hours) Vital Signs Temp Pulse Pulse Resp BP Pulse Ox 08/07/21 10:52 36.8 C 82 22 116/67 92 08/07/21 07:00 36.6 C 69 81 28 H 113/65 91
[2021-08-07] MEDS: hydrOXYzine HCl 10 MG TAB PO PRN (20:35)
[2021-08-08] MEDS: OXYMETAZOLINE 0.05% 30 ML BTL PRN ×2 (06:42→19:45)
[2021-08-08] MEDS: dexAMETHasone 6 MG in SYRINGE 0 ML IV SCH (08:20)
[2021-08-08] MEDS: guaiFENesin 600 MG TABCR PO SCH ×2 (08:21→21:01)
[2021-08-08] MEDS: PANTOprazole 40 MG TAB PO SCH (08:21)
[2021-08-08] MEDS: ENOXAPARIN INJ 40 MG/0.4 ML SYR SQ SCH ×2 (08:21→21:03)
[2021-08-08] MEDS: FUROSEMIDE 40 MG/4 ML VIAL IV SCH (09:07)
[2021-08-08] MEDS: 4 mg Once Daily x14 days PO SCH (09:07)
[2021-08-08] MEDS: REMDESIVIR 100 MG in SODIUM CHLORIDE 0.9% 230 ML IV SCH (11:46)
[2021-08-08] MEDS: SODIUM CHLORIDE 0.9% 10ML FLUSH IV SCH (11:46)
--- NOTE | 2021-08-08 16:38 | Hospitalist Progress Note ---
Date of Service August 08, 2021 Assessment & Plan (1) Pneumonia due to COVID-19 virus: Plan: -Not vaccinated for COVID-19 - COVID-19 positive on 07/27/2021 and also repeat test on admission -Was seen in ER on with increasing shortness of breath and was given Deca dron and was sent home - Lymphocytes 0.76, neutrophils 9.96, CRP level is 9.86 and procalcitonin is normal as of 08/04/2021 -Repeat visit on 08/02 with more shortness of breath but was not hypoxic -Was admitted with increasing shortness of breath and as of today requiring up to 5 L of oxygen to maintain saturation - CXR reviewed: showing slight progression of bilateral opacities suggestive of viral pneumonia -Continue with remdesivir/Decadron. - C/w baricitinib. Appreciate pulmonary medicine input. Continue with IV Lasix 40 mg daily. Continue to monitor ins and outs along with daily weights. Cumulative balance is -2090. We will continue Lasix and supportive care (2) Syncope and collapse: Plan: -Check 2D echo: LV is normal in size, normal LV wall thickness, EF 60 to 65%, no significant valvular disease - Mag 2.2 on admission, TSH 2.41 - EKG reviewed without acute ST wave changes, no signs of ischemia. (3) Hypoxia: Plan: Currently remains on 10 L of nasal cannula. Reports shortness of breath is improved. (4) Hyponatremia: Plan: -Likely secondary to acute dehydration, continue IV fluids as above, monitor with a.m. labs -Today at 133 -Has been on Lasix and will monitor PRP -Sodium at 133 as of 08/08/2021 (5) COVID-19: Plan: -As above, acute DVT prophylaxis: - teds, scds, Lovenox CODE: Full code Admission and Anticipated Discharge Date Admission Date: August 03, 2021 Subjective 08/04/2021 The patient was seen and examined in telemetry unit and in Covid room He has been more short of breath today and has been requiring up to 5 L of oxygen to maintain saturation Is short of breath at rest and he is flushed Has cough but denies any chest pain 08/05/2021 The patient was seen and examined in telemetry unit and in the Covid room His condition has been deteriorating and now requiring up to 10 L of oxygen to maintain saturation Has cough with increasing shortness of breath 08/08/2021 The patient was seen and examined in telemetry unit and in the Covid room He has been feeling better compared with yesterday Still requiring about 7 L of oxygen to maintain saturation Review of Systems Review of Systems: All systems reviewed and are unremarkable except as noted below Physical Exam Physical Exam: Lying in bed with moderate shortness of breath at rest Constitutional: well developed, well nourished, + ill appearing and + obese Eyes: PERRL, conjunctivae normal, anicteric sclerae ENMT: external ear and nose normal, oropharynx normal Neck: trachea midline, no thyromegaly Respiratory: + respiratory distress, + labored breathing and + cough Auscultation: + diminished lung sounds, + crackles (At the bases) and + rales Cardiovascular: Rate/Rhythm: regular rate and regular rhythm; not tachycardic Heart Sounds: normal S1 and normal S2; no murmur Gastrointestinal (Abdomen): Inspection/Auscultation: abdomen not distended Percussion/Palpation: abdomen soft; abdomen nontender Musculoskeletal: No acute arthritis in any joint Neurologic: Alert, awake and oriented x3. No focal sensory or motor deficit appreciated Psychiatric: A+Ox3, euthymic affect Results & Data Results & Data ([facility]) Vital Signs (Past 12 Hours) Vital Signs Temp Pulse Pulse Pulse Resp BP Pulse Ox 08/08/21 16:00 65 08/08/21 15:28 36.9 C 58 L 18 115/66 96 08/08/21 11:50 36.9 C 68 20 108/79 92 08/08/21 08:00 68 08/08/21 07:57 36.6 C 74 16 121/62 93 Pulse Ox 08/08/21 16:00 92 08/08/21 15:28 08/08/21 11:50 08/08/21 08:00 08/08/21 07:57 Diagnostic Findings Current Inpatient Medications Acetaminophen (Acetaminophen 500 Mg Tab) 1,000 mg PO Q6H PRN PRN Reason: FEVER/PAIN Stop: 09/02/21 22:46 Last Admin: 08/08/21 00:05 Dose: 1,000 mg Documented by: Albuterol (Albuterol Hfa 8 Gm Inhaler) 3 puffs INH Q4R PRN PRN Reason: Shortness Of Breath Or Wheezing Stop: 09/04/21 10:30 Baricitinib (4 Mg Once Daily X14 Days) 4 mg PO DAILY [facility]; Protocol Stop: 08/19/21 13:59 Last Admin: 08/08/21 09:07 Dose: 4 mg Documented by: Calcium Carbonate (Calcium Carbonate 500 Mg Chewable Tab) 1,000 mg PO TID PRN PRN Reason: Indigestion Stop: 09/03/21 12:03 Last Admin: 08/04/21 20:51 Dose: 1,000 mg Documented by: Enoxaparin Sodium (Enoxaparin Inj 40 Mg/0.4 Ml Syr) 40 mg SQ Q12H [facility] Stop: 09/03/21 20:59 Last Admin: 08/08/21 08:21 Dose: 40 mg Documented by: Furosemide (Furosemide 40 Mg/4 Ml Vial) 40 mg IV DAILY [facility] Stop: 09/03/21 14:59 Last Admin: 08/08/21 09:07 Dose: 40 mg Documented by: Guaifenesin (Guaifenesin 600 Mg Tabcr) 1,200 mg PO Q12 [facility] Stop: 09/03/21 20:59 Last Admin: 08/08/21 08:21 Dose: 1,200 mg Documented by: Hydroxyzine HCl (Hydroxyzine Hcl 10 Mg Tab) 10 mg PO Q8H PRN PRN Reason: Anxiety Stop: 09/06/21 11:26 Last Admin: 08/07/21 20:35 Dose: 10 mg Documented by: Dexamethasone 6 mg/ Syringe 1.5 mls @ 1 mls/min IV DAILY [facility] Stop: 08/10/21 08:59 Last Admin: 08/08/21 08:20 Dose: 1 mls/min Documented by: Ondansetron HCl (Ondansetron Inj 2 Mg/Ml 2 Ml Vial) 4 mg IV Q4H PRN PRN Reason: Nausea And Vomiting Stop: 09/02/21 22:37 Oxymetazoline HCl (Oxymetazoline 0.05% 30 Ml Btl) 1 sprays NA DAILY PRN PRN Reason: Nasal Congestion Stop: 09/07/21 04:29 Last Admin: 08/08/21 06:42 Dose: 1 sprays Documented by: Sodium Chloride (Sodium Chloride 0.65% Na Soln 45 Ml ([place])) 1 sprays NA NOW PRN PRN Reason: Dryness Stop: 09/06/21 09:11 Last Admin: 08/07/21 09:51 Dose: 1 sprays Documented by:
[2021-08-08] MEDS: hydrOXYzine HCl 10 MG TAB PO PRN (21:01)
[2021-08-09 06:41] LABS: Calcium 8.9 mg/dl (8.5-10.1); Creatinine Clr Calc Pharmacy 112.1 ml/min; Est GFR (African American) 111.1 ml/min; Est GFR (Non-African American) 95.9 ml/min; Potassium 3.8 mmol/L (3.5-5.1)
[2021-08-09 06:42] LABS: C Reactive Protein 14.3 mg/dl (0-0.29); Phosphorus 2.8 mg/dl (2.5-4.9)
[2021-08-09] MEDS: hydrOXYzine HCl 10 MG TAB PO PRN ×2 (08:26→20:51)
[2021-08-09] MEDS: dexAMETHasone 6 MG in SYRINGE 0 ML IV SCH (08:26)
[2021-08-09] MEDS: OXYMETAZOLINE 0.05% 30 ML BTL PRN (08:27)
[2021-08-09] MEDS: guaiFENesin 600 MG TABCR PO SCH ×2 (08:27→20:50)
[2021-08-09] MEDS: ENOXAPARIN INJ 40 MG/0.4 ML SYR SQ SCH ×2 (08:28→20:51)
[2021-08-09] MEDS: 4 mg Once Daily x14 days PO SCH (09:37)
[2021-08-09] MEDS: FUROSEMIDE 40 MG/4 ML VIAL IV SCH (09:37)
--- NOTE | 2021-08-09 16:01 | Hospitalist Progress Note ---
Date of Service August 09, 2021 Assessment & Plan (1) Pneumonia due to COVID-19 virus: Plan: -Not vaccinated for COVID-19 - COVID-19 positive on 07/27/2021 and also repeat test on admission -Was seen in ER on with increasing shortness of breath and was given Deca dron and was sent home - Lymphocytes 0.76, neutrophils 9.96, CRP level is 9.86 and procalcitonin is normal as of 08/04/2021 -Repeat visit on 08/02 with more shortness of breath but was not hypoxic -Was admitted with increasing shortness of breath and as of today requiring up to 5 L of oxygen to maintain saturation - CXR reviewed: showing slight progression of bilateral opacities suggestive of viral pneumonia -Continue with remdesivir/Decadron. - C/w baricitinib. Appreciate pulmonary medicine input. Continue with IV Lasix 40 mg daily. Continue to monitor ins and outs along with daily weights. Cumulative balance is -2090. We will continue Lasix and supportive care Has been getting better but still requiring about 8 L of oxygen to maintain saturation Proning as advised Denies any other symptoms except shortness of breath-we will repeat chest x-ray to evaluate pneumonia (2) Syncope and collapse: Plan: -Check 2D echo: LV is normal in size, normal LV wall thickness, EF 60 to 65%, no significant valvular disease - Mag 2.2 on admission, TSH 2.41 - EKG reviewed without acute ST wave changes, no signs of ischemia. (3) Hypoxia: Plan: Currently remains on 10 L of nasal cannula. Reports shortness of breath is improved. (4) Hyponatremia: Plan: -Likely secondary to acute dehydration, continue IV fluids as above, monitor with a.m. labs -Today at 133 -Has been on Lasix and will monitor PRP -Sodium at 133 as of 08/08/2021 (5) COVID-19: Plan: -As above, acute DVT prophylaxis: - teds, scds, Lovenox CODE: Full code Discussed with the Admission and Anticipated Discharge Date Admission Date: August 03, 2021 Subjective 08/04/2021 The patient was seen and examined in telemetry unit and in Covid room He has been more short of breath today and has been requiring up to 5 L of oxygen to maintain saturation Is short of breath at rest and he is flushed Has cough but denies any chest pain 08/05/2021 The patient was seen and examined in telemetry unit and in the Covid room His condition has been deteriorating and now requiring up to 10 L of oxygen to maintain saturation Has cough with increasing shortness of breath 08/08/2021 The patient was seen and examined in telemetry unit and in the Covid room He has been feeling better compared with yesterday Still requiring about 7 L of oxygen to maintain saturation 08/09/2021 The patient was seen and examined in telemetry unit and in the Covid room He has been feeling a little better Still requiring 8 L of oxygen to maintain saturation Has cough Review of Systems Review of Systems: All systems reviewed and are unremarkable except as noted below Physical Exam Physical Exam: Lying in bed with moderate shortness of breath at rest Constitutional: well developed, well nourished, + ill appearing and + obese Eyes: PERRL, conjunctivae normal, anicteric sclerae ENMT: external ear and nose normal, oropharynx normal Neck: trachea midline, no thyromegaly Respiratory: + respiratory distress, + labored breathing and + cough Auscultation: + diminished lung sounds, + crackles (At the bases) and + rales Cardiovascular: Rate/Rhythm: regular rate and regular rhythm; not tachycardic Heart Sounds: normal S1 and normal S2; no murmur Gastrointestinal (Abdomen): Inspection/Auscultation: abdomen not distended Percussion/Palpation: abdomen soft; abdomen nontender Musculoskeletal: No acute arthritis in any joint Neurologic: Alert, awake and oriented x3 Psychiatric: A+Ox3, euthymic affect Results & Data Results & Data ([facility]) Vital Signs (Past 12 Hours) Vital Signs Temp Pulse Pulse Resp BP Pulse Ox 08/09/21 15:25 36.8 C 70 18 110/63 93 08/09/21 12:00 36.8 C 69 18 106/67 90 08/09/21 07:35 63 08/09/21 07:24 37.0 C 74 18 95/54 L 91 08/09/21 04:00 36.9 C 80 24 99/57 L 91 Laboratory Results [facility] 08/09/21 05:38 Sodium 132 L Potassium 3.8 Chloride 99 Carbon Dioxide 28 BUN 28 H Creatinine 0.97 Glucose 111 H Calcium 8.9 Medications Administered Current Inpatient Medications Acetaminophen (Acetaminophen 500 Mg Tab) 1,000 mg PO Q6H PRN PRN Reason: FEVER/PAIN Stop: 09/02/21 22:46 Last Admin: 08/08/21 00:05 Dose: 1,000 mg Documented by: Albuterol (Albuterol Hfa 8 Gm Inhaler) 3 puffs INH Q4R PRN PRN Reason: Shortness Of Breath Or Wheezing Stop: 09/04/21 10:30 Baricitinib (4 Mg Once Daily X14 Days) 4 mg PO DAILY [facility]; Protocol Stop: 08/19/21 13:59 Last Admin: 08/09/21 09:37 Dose: 4 mg Documented by: Calcium Carbonate (Calcium Carbonate 500 Mg Chewable Tab) 1,000 mg PO TID PRN PRN Reason: Indigestion Stop: 09/03/21 12:03 Last Admin: 08/04/21 20:51 Dose: 1,000 mg Documented by: Enoxaparin Sodium (Enoxaparin Inj 40 Mg/0.4 Ml Syr) 40 mg SQ Q12H [facility] Stop: 09/03/21 20:59 Last Admin: 08/09/21 08:28 Dose: 40 mg Documented by: Furosemide (Furosemide 40 Mg/4 Ml Vial) 40 mg IV DAILY [facility] Stop: 09/03/21 14:59 Last Admin: 08/09/21 09:37 Dose: 40 mg Documented by: Guaifenesin (Guaifenesin 600 Mg Tabcr) 1,200 mg PO Q12 [facility] Stop: 09/03/21 20:59 Last Admin: 08/09/21 08:27 Dose: 1,200 mg Documented by: Hydroxyzine HCl (Hydroxyzine Hcl 10 Mg Tab) 10 mg PO Q8H PRN PRN Reason: Anxiety Stop: 09/06/21 11:26 Last Admin: 08/09/21 08:26 Dose: 10 mg Documented by: Dexamethasone 6 mg/ Syringe 1.5 mls @ 1 mls/min IV DAILY [facility] Stop: 08/10/21 08:59 Last Admin: 08/09/21 08:26 Dose: 1 mls/min Documented by: Ondansetron HCl (Ondansetron Inj 2 Mg/Ml 2 Ml Vial) 4 mg IV Q4H PRN PRN Reason: Nausea And Vomiting Stop: 09/02/21 22:37 Oxymetazoline HCl (Oxymetazoline 0.05% 30 Ml Btl) 1 sprays NA DAILY PRN PRN Reason: Nasal Congestion Stop: 09/07/21 04:29 Last Admin: 08/09/21 08:27 Dose: 1 sprays Documented by: Sodium Chloride (Sodium Chloride 0.65% Na Soln 45 Ml ([place])) 1 sprays NA NOW PRN PRN Reason: Dryness Stop: 09/06/21 09:11 Last Admin: 08/07/21 09:51 Dose: 1 sprays Documented by:
--- NOTE | 2021-08-09 17:05 | XRay Report ---
XR chest 1V portable HISTORY: Worsening shortness of breath. Covid pneumonia. COMPARISON: Chest 08/03/2021. FINDINGS: Patchy multifocal airspace opacities most pronounced within the lower lung zones. This has progressed in the interval. No pleural fusions. No pneumothorax. The heart is normal in size. IMPRESSION: Interval progression of the moderate multifocal viral pneumonia. ACT 112: Negative or not required by law. Electronically signed by: Heriberto Avila M.D. 08/09/2021 5:03 PM
[2021-08-10] MEDS: 4 mg Once Daily x14 days PO SCH (08:15)
[2021-08-10] MEDS: FUROSEMIDE 40 MG/4 ML VIAL IV SCH (08:15)
[2021-08-10] MEDS: ENOXAPARIN INJ 40 MG/0.4 ML SYR SQ SCH ×2 (08:16→21:13)
[2021-08-10] MEDS: guaiFENesin 600 MG TABCR PO SCH ×2 (08:16→21:14)
--- NOTE | 2021-08-10 15:11 | Hospitalist Progress Note ---
Date of Service August 10, 2021 Assessment & Plan (1) Pneumonia due to COVID-19 virus: Plan: -Not vaccinated for COVID-19 - COVID-19 positive on 07/27/2021 and also repeat test on admission -Was seen in ER on with increasing shortness of breath and was given Deca dron and was sent home - Lymphocytes 0.76, neutrophils 9.96, CRP level is 9.86 and procalcitonin is normal as of 08/04/2021 -Repeat visit on 08/02 with more shortness of breath but was not hypoxic -Was admitted with increasing shortness of breath and as of today requiring up to 5 L of oxygen to maintain saturation - CXR reviewed: showing slight progression of bilateral opacities suggestive of viral pneumonia -Continue with remdesivir/Decadron. - C/w baricitinib. Appreciate pulmonary medicine input. Continue with IV Lasix 40 mg daily. Continue to monitor ins and outs along with daily weights. Cumulative balance is -2090. We will continue Lasix and supportive care Has been getting better but still requiring about 8 L of oxygen to maintain saturation Proning as advised Chest x-ray did not show any improvement but clinically he has been feeling much better Requiring about 5 L oxygen to maintain saturation We will continue current management (2) Syncope and collapse: Plan: -Check 2D echo: LV is normal in size, normal LV wall thickness, EF 60 to 65%, no significant valvular disease - Mag 2.2 on admission, TSH 2.41 - EKG reviewed without acute ST wave changes, no signs of ischemia. (3) Hypoxia: Plan: Currently remains on 10 L of nasal cannula. Reports shortness of breath is improved. (4) Hyponatremia: Plan: -Likely secondary to acute dehydration, continue IV fluids as above, monitor with a.m. labs -Today at 133 -Has been on Lasix and will monitor PRP -Sodium at 133 as of 08/08/2021 (5) COVID-19: Plan: -As above, acute DVT prophylaxis: - teds, scds, Lovenox CODE: Full code Discussed with the again today Admission and Anticipated Discharge Date Admission Date: August 03, 2021 Subjective 08/04/2021 The patient was seen and examined in telemetry unit and in Covid room He has been more short of breath today and has been requiring up to 5 L of oxygen to maintain saturation Is short of breath at rest and he is flushed Has cough but denies any chest pain 08/05/2021 The patient was seen and examined in telemetry unit and in the Covid room His condition has been deteriorating and now requiring up to 10 L of oxygen to maintain saturation Has cough with increasing shortness of breath 08/08/2021 The patient was seen and examined in telemetry unit and in the Covid room He has been feeling better compared with yesterday Still requiring about 7 L of oxygen to maintain saturation 08/09/2021 The patient was seen and examined in telemetry unit and in the Covid room He has been feeling a little better Still requiring 8 L of oxygen to maintain saturation Has cough 08/10/2021 The patient was seen and examined in telemetry unit and in the Covms room He has been feeling much better today Chest x-ray showed little worsening pneumonia but clinically he is better and is requiring about 5 L of oxygen to maintain saturation Review of Systems Review of Systems: All systems reviewed and are unremarkable except as noted below Physical Exam Physical Exam: Lying in bed with moderate shortness of breath at rest Constitutional: well developed, well nourished, + ill appearing and + obese Eyes: PERRL, conjunctivae normal, anicteric sclerae ENMT: external ear and nose normal, oropharynx normal Neck: trachea midline, no thyromegaly Respiratory: + respiratory distress, + labored breathing and + cough Auscultation: + diminished lung sounds, + crackles (At the bases) and + rales Cardiovascular: Rate/Rhythm: regular rate and regular rhythm; not tachycardic Heart Sounds: normal S1 and normal S2; no murmur Gastrointestinal (Abdomen): Inspection/Auscultation: abdomen not distended Percussion/Palpation: abdomen soft; abdomen nontender Musculoskeletal: No acute arthritis in any joint Neurologic: Alert, awake and oriented x3 Psychiatric: A+Ox3, euthymic affect Results & Data Results & Data ([facility]) Vital Signs (Past 12 Hours) Vital Signs Temp Pulse Pulse Pulse Resp BP BP 08/10/21 13:34 08/10/21 11:29 36.4 C L 78 21 92/50 L 08/10/21 10:41 08/10/21 07:23 36.7 C 66 19 110/65 08/10/21 07:00 70 08/10/21 04:00 37.0 C 74 19 108/60 Pulse Ox Pulse Ox 08/10/21 13:34 94 08/10/21 11:29 95 08/10/21 10:41 94 08/10/21 07:23 95 08/10/21 07:00 08/10/21 04:00 91 Medications Administered Current Inpatient Medications Acetaminophen (Acetaminophen 500 Mg Tab) 1,000 mg PO Q6H PRN PRN Reason: FEVER/PAIN Stop: 09/02/21 22:46 Last Admin: 08/08/21 00:05 Dose: 1,000 mg Documented by: Albuterol (Albuterol Hfa 8 Gm Inhaler) 3 puffs INH Q4R PRN PRN Reason: Shortness Of Breath Or Wheezing Stop: 09/04/21 10:30 Baricitinib (4 Mg Once Daily X14 Days) 4 mg PO DAILY [facility]; Protocol Stop: 08/19/21 13:59 Last Admin: 08/10/21 08:15 Dose: 4 mg Documented by: Calcium Carbonate (Calcium Carbonate 500 Mg Chewable Tab) 1,000 mg PO TID PRN PRN Reason: Indigestion Stop: 09/03/21 12:03 Last Admin: 08/04/21 20:51 Dose: 1,000 mg Documented by: Enoxaparin Sodium (Enoxaparin Inj 40 Mg/0.4 Ml Syr) 40 mg SQ Q12H [facility] Stop: 09/03/21 20:59 Last Admin: 08/10/21 08:16 Dose: 40 mg Documented by: Furosemide (Furosemide 40 Mg/4 Ml Vial) 40 mg IV DAILY [facility] Stop: 09/03/21 14:59 Last Admin: 08/10/21 08:15 Dose: 40 mg Documented by: Guaifenesin (Guaifenesin 600 Mg Tabcr) 1,200 mg PO Q12 [facility] Stop: 09/03/21 20:59 Last Admin: 08/10/21 08:16 Dose: 1,200 mg Documented by: Hydroxyzine HCl (Hydroxyzine Hcl 10 Mg Tab) 10 mg PO Q8H PRN PRN Reason: Anxiety Stop: 09/06/21 11:26 Last Admin: 08/09/21 20:51 Dose: 10 mg Documented by: Ondansetron HCl (Ondansetron Inj 2 Mg/Ml 2 Ml Vial) 4 mg IV Q4H PRN PRN Reason: Nausea And Vomiting Stop: 09/02/21 22:37 Oxymetazoline HCl (Oxymetazoline 0.05% 30 Ml Btl) 1 sprays NA DAILY PRN PRN Reason: Nasal Congestion Stop: 09/07/21 04:29 Last Admin: 08/09/21 08:27 Dose: 1 sprays Documented by: Sodium Chloride (Sodium Chloride 0.65% Na Soln 45 Ml ([place])) 1 sprays NA NOW PRN PRN Reason: Dryness Stop: 09/06/21 09:11 Last Admin: 08/07/21 09:51 Dose: 1 sprays Documented by:
[2021-08-10] MEDS: hydrOXYzine HCl 10 MG TAB PO PRN (21:24)
[2021-08-11 08:01] LABS: Albumin Level 2.4 gm/dl (3.4-5.0); BUN Creatinine Ratio 28.8 (10-20); Creatinine Clr Calc Pharmacy 127.9 ml/min; Est GFR (African American) 124.6 ml/min; Est GFR (Non-African American) 107.5 ml/min; Magnesium 2.6 mg/dl (1.8-2.4); Potassium 3.6 mmol/L (3.5-5.1)
[2021-08-11 08:08] LABS: Albumin Globulin Ratio 0.5 (0.9-2); Bilirubin,Total 0.8 mg/dl (0.2-1); Globulin 4.6 gm/dl (2.5-4.0); Phosphorus 3.9 mg/dl (2.5-4.9)
[2021-08-11] MEDS: ENOXAPARIN INJ 40 MG/0.4 ML SYR SQ SCH ×2 (08:27→20:06)
[2021-08-11] MEDS: guaiFENesin 600 MG TABCR PO SCH ×2 (08:28→20:06)
[2021-08-11] MEDS: FUROSEMIDE 40 MG/4 ML VIAL IV SCH (08:30)
[2021-08-11] MEDS: 4 mg Once Daily x14 days PO SCH (09:28)
--- NOTE | 2021-08-11 14:11 | Hospitalist Progress Note ---
Date of Service August 11, 2021 Assessment & Plan (1) Pneumonia due to COVID-19 virus: Plan: -Not vaccinated for COVID-19 - COVID-19 positive on 07/27/2021 and also repeat test on admission -Was seen in ER on with increasing shortness of breath and was given Deca dron and was sent home - Lymphocytes 0.76, neutrophils 9.96, CRP level is 9.86 and procalcitonin is normal as of 08/04/2021 -Repeat visit on 08/02 with more shortness of breath but was not hypoxic -Was admitted with increasing shortness of breath and as of today requiring up to 5 L of oxygen to maintain saturation - CXR reviewed: showing slight progression of bilateral opacities suggestive of viral pneumonia -Continue with remdesivir/Decadron. - C/w baricitinib. Appreciate pulmonary medicine input. Continue with IV Lasix 40 mg daily. Continue to monitor ins and outs along with daily weights. Cumulative balance is -2090. We will continue Lasix and supportive care Has been getting better but still requiring about 8 L of oxygen to maintain saturation Proning as advised Chest x-ray did not show any improvement but clinically he has been feeling much better Clinically much better today and is on 4 L oxygen to maintain saturation We will get to a step O2 saturation tomorrow and if oxygen requirements are less than or equal to 4 L he will be discharged home (2) Syncope and collapse: Plan: -Check 2D echo: LV is normal in size, normal LV wall thickness, EF 60 to 65%, no significant valvular disease - Mag 2.2 on admission, TSH 2.41 - EKG reviewed without acute ST wave changes, no signs of ischemia. (3) Hypoxia: Plan: Currently remains on 10 L of nasal cannula. Reports shortness of breath is improved. (4) Hyponatremia: Plan: -Likely secondary to acute dehydration, continue IV fluids as above, monitor with a.m. labs -Today at 133 -Has been on Lasix and will monitor PRP -Sodium at 133 as of 08/08/2021 (5) COVID-19: Plan: -As above, acute DVT prophylaxis: - teds, scds, Lovenox CODE: Full code Discussed with the again today Admission and Anticipated Discharge Date Admission Date: August 03, 2021 Subjective 08/04/2021 The patient was seen and examined in telemetry unit and in Covid room He has been more short of breath today and has been requiring up to 5 L of oxygen to maintain saturation Is short of breath at rest and he is flushed Has cough but denies any chest pain 08/05/2021 The patient was seen and examined in telemetry unit and in the Covid room His condition has been deteriorating and now requiring up to 10 L of oxygen to maintain saturation Has cough with increasing shortness of breath 08/08/2021 The patient was seen and examined in telemetry unit and in the Covid room He has been feeling better compared with yesterday Still requiring about 7 L of oxygen to maintain saturation 08/09/2021 The patient was seen and examined in telemetry unit and in the Covid room He has been feeling a little better Still requiring 8 L of oxygen to maintain saturation Has cough 08/10/2021 The patient was seen and examined in telemetry unit and in the Covid room He has been feeling much better today Chest x-ray showed little worsening pneumonia but clinically he is better and is requiring about 5 L of oxygen to maintain saturation 08/11/2021 The patient was seen and examined in telemetry unit and in the Covid room He has been feeling much better and has been requiring about 4 L of oxygen to maintain saturation Denies any other symptoms Review of Systems Review of Systems: All systems reviewed and are unremarkable except as noted below Physical Exam Physical Exam: Lying in bed with moderate shortness of breath at rest Constitutional: well developed, well nourished, + ill appearing and + obese Eyes: PERRL, conjunctivae normal, anicteric sclerae ENMT: external ear and nose normal, oropharynx normal Neck: trachea midline, no thyromegaly Respiratory: + respiratory distress, + labored breathing and + cough Auscultation: + diminished lung sounds, + crackles (At the bases) and + rales Cardiovascular: Rate/Rhythm: regular rate and regular rhythm; not tachycardic Heart Sounds: normal S1 and normal S2; no murmur Gastrointestinal (Abdomen): Inspection/Auscultation: abdomen not distended Percussion/Palpation: abdomen soft; abdomen nontender Neurologic: Alert, awake and oriented x3. No focal sensory or motor deficit appreciated Psychiatric: A+Ox3, euthymic affect Results & Data Results & Data ([facility]) Vital Signs (Past 12 Hours) Vital Signs Temp Pulse Pulse Resp BP BP Pulse Ox 08/11/21 11:58 36.8 C 76 20 97/66 L 93 08/11/21 07:45 37.1 C 54 L 22 109/55 L 94 08/11/21 05:50 37.1 C 72 16 99/64 L 90 Laboratory Results BMP 08/11/21 06:32 Sodium 134 L Potassium 3.6 Chloride 99 Carbon Dioxide 28 BUN 25 H Creatinine 0.85 Glucose 107 H Calcium 9.0 Liver Function 08/11/21 Range/Units 06:32 Total Bilirubin 0.8 (0.2-1) mg/dl AST 30 (15-37) U/L ALT 98 H (12-78) U/L Alkaline Phosphatase 77 (45-117) U/L Albumin 2.4 L (3.4-5.0) gm/dl Medications Administered Current Inpatient Medications Acetaminophen (Acetaminophen 500 Mg Tab) 1,000 mg PO Q6H PRN PRN Reason: FEVER/PAIN Stop: 09/02/21 22:46 Last Admin: 08/08/21 00:05 Dose: 1,000 mg Documented by: Albuterol (Albuterol Hfa 8 Gm Inhaler) 3 puffs INH Q4R PRN PRN Reason: Shortness Of Breath Or Wheezing Stop: 09/04/21 10:30 Baricitinib (4 Mg Once Daily X14 Days) 4 mg PO DAILY JMAES; Protocol Stop: 08/19/21 13:59 Last Admin: 08/11/21 09:28 Dose: 4 mg Documented by: Calcium Carbonate (Calcium Carbonate 500 Mg Chewable Tab) 1,000 mg PO TID PRN PRN Reason: Indigestion Stop: 09/03/21 12:03 Last Admin: 08/04/21 20:51 Dose: 1,000 mg Documented by: Enoxaparin Sodium (Enoxaparin Inj 40 Mg/0.4 Ml Syr) 40 mg SQ Q12H JAMES Stop: 09/03/21 20:59 Last Admin: 08/11/21 08:27 Dose: 40 mg Documented by: Furosemide (Furosemide 40 Mg/4 Ml Vial) 40 mg IV DAILY JAMES Stop: 09/03/21 14:59 Last Admin: 08/11/21 08:30 Dose: 40 mg Documented by: Guaifenesin (Guaifenesin 600 Mg Tabcr) 1,200 mg PO Q12 JAMES Stop: 09/03/21 20:59 Last Admin: 08/11/21 08:28 Dose: 1,200 mg Documented by: Hydroxyzine HCl (Hydroxyzine Hcl 10 Mg Tab) 10 mg PO Q8H PRN PRN Reason: Anxiety Stop: 09/06/21 11:26 Last Admin: 08/10/21 21:24 Dose: 10 mg Documented by: Ondansetron HCl (Ondansetron Inj 2 Mg/Ml 2 Ml Vial) 4 mg IV Q4H PRN PRN Reason: Nausea And Vomiting Stop: 09/02/21 22:37 Oxymetazoline HCl (Oxymetazoline 0.05% 30 Ml Btl) 1 sprays NA DAILY PRN PRN Reason: Nasal Congestion Stop: 09/07/21 04:29 Last Admin: 08/09/21 08:27 Dose: 1 sprays Documented by: Sodium Chloride (Sodium Chloride 0.65% Na Soln 45 Ml ([place])) 1 sprays NA NOW PRN PRN Reason: Dryness Stop: 09/06/21 09:11 Last Admin: 08/07/21 09:51 Dose: 1 sprays Documented by:
[2021-08-12 07:53] LABS: BUN Creatinine Ratio 20.2 (10-20); Calcium 9.2 mg/dl (8.5-10.1); Creatinine Clr Calc Pharmacy 123.6 ml/min; Est GFR (African American) 122.8 ml/min; Potassium 3.8 mmol/L (3.5-5.1)
[2021-08-12] MEDS: 4 mg Once Daily x14 days PO SCH (08:07)
[2021-08-12] MEDS: guaiFENesin 600 MG TABCR PO SCH (08:08)
[2021-08-12] MEDS: ENOXAPARIN INJ 40 MG/0.4 ML SYR SQ SCH (08:09)
[2021-08-12] MEDS: FUROSEMIDE 40 MG/4 ML VIAL IV SCH (08:10)
--- NOTE | 2021-08-12 12:53 | Hospitalist Progress Note ---
Date of Service August 12, 2021 Assessment & Plan (1) Pneumonia due to COVID-19 virus: Plan: -Not vaccinated for COVID-19 - COVID-19 positive on 07/27/2021 and also repeat test on admission -Was seen in ER on with increasing shortness of breath and was given Deca dron and was sent home - Lymphocytes 0.76, neutrophils 9.96, CRP level is 9.86 and procalcitonin is normal as of 08/04/2021 -Repeat visit on 08/02 with more shortness of breath but was not hypoxic -Was admitted with increasing shortness of breath and as of today requiring up to 5 L of oxygen to maintain saturation - CXR reviewed: showing slight progression of bilateral opacities suggestive of viral pneumonia -Continue with remdesivir/Decadron. - C/w baricitinib. Appreciate pulmonary medicine input. Continue with IV Lasix 40 mg daily. Continue to monitor ins and outs along with daily weights. Cumulative balance is -2090. We will continue Lasix and supportive care Has been getting better but still requiring about 8 L of oxygen to maintain saturation Proning as advised Chest x-ray did not show any improvement but clinically he has been feeling much better He is much better today and has been saturating on room air at rest He underwent to do steps O2 saturation test and he will require 1 L of oxygen with ambulation He will be discharged home this afternoon (2) Syncope and collapse: Plan: -Check 2D echo: LV is normal in size, normal LV wall thickness, EF 60 to 65%, no significant valvular disease - Mag 2.2 on admission, TSH 2.41 - EKG reviewed without acute ST wave changes, no signs of ischemia. (3) Hypoxia: Plan: Currently remains on 10 L of nasal cannula. Reports shortness of breath is improved. (4) Hyponatremia: Plan: -Likely secondary to acute dehydration, continue IV fluids as above, monitor with a.m. labs -Today at 133 -Has been on Lasix and will monitor PRP -Sodium at 133 as of 08/08/2021 -Sodium remains minimally low at 133 (5) COVID-19: Plan: -As above, acute DVT prophylaxis: - teds, scds, Lovenox CODE: Full code He will be discharged home this afternoon Admission and Anticipated Discharge Date Admission Date: August 03, 2021 Subjective 08/04/2021 The patient was seen and examined in telemetry unit and in Covid room He has been more short of breath today and has been requiring up to 5 L of oxygen to maintain saturation Is short of breath at rest and he is flushed Has cough but denies any chest pain 08/05/2021 The patient was seen and examined in telemetry unit and in the Covid room His condition has been deteriorating and now requiring up to 10 L of oxygen to maintain saturation Has cough with increasing shortness of breath 08/08/2021 The patient was seen and examined in telemetry unit and in the Covid room He has been feeling better compared with yesterday Still requiring about 7 L of oxygen to maintain saturation 08/09/2021 The patient was seen and examined in telemetry unit and in the Covde room He has been feeling a little better Still requiring 8 L of oxygen to maintain saturation Has cough 08/10/2021 The patient was seen and examined in telemetry unit and in the Covde room He has been feeling much better today Chest x-ray showed little worsening pneumonia but clinically he is better and is requiring about 5 L of oxygen to maintain saturation 08/11/2021 The patient was seen and examined in telemetry unit and in the Covid room He has been feeling much better and has been requiring about 4 L of oxygen to maintain saturation Denies any other symptoms 08/12/2021 The patient was seen and examined in telemetry unit and in the Covid room He has been feeling much better and has been saturating normally on room air Denies any significant symptoms Has had 2 steps O2 saturation test and he will require 1 L of oxygen with ambulation Review of Systems Review of Systems: All systems reviewed and are unremarkable except as noted below Physical Exam Physical Exam: Lying in bed with moderate shortness of breath at rest Constitutional: well developed, well nourished, + ill appearing and + obese Eyes: PERRL, conjunctivae normal, anicteric sclerae ENMT: external ear and nose normal, oropharynx normal Neck: trachea midline, no thyromegaly Respiratory: + respiratory distress, + labored breathing and + cough Auscultation: + diminished lung sounds; no crackles (At the bases) and no rales Cardiovascular: Rate/Rhythm: regular rate and regular rhythm; not tachycardic Heart Sounds: normal S1 and normal S2; no murmur Gastrointestinal (Abdomen): Inspection/Auscultation: abdomen not distended Percussion/Palpation: abdomen soft; abdomen nontender Neurologic: Alert, awake and oriented x3, no focal sensory or motor deficit appreciated Psychiatric: A+Ox3, euthymic affect Results & Data Results & Data ([facility]) Vital Signs (Past 12 Hours) Vital Signs Temp Pulse Pulse Pulse Pulse Pulse Pulse 08/12/21 08:10 90 103 H 74 08/12/21 08:00 36.6 C 75 08/12/21 07:21 68 08/12/21 04:29 36.9 C 68 Pulse Resp Resp Resp Resp Resp BP 08/12/21 08:10 84 22 22 20 16 08/12/21 08:00 18 08/12/21 07:21 08/12/21 04:29 19 98/68 L BP Pulse Ox Pulse Ox Pulse Ox Pulse Ox Pulse Ox 08/12/21 08:10 90 87 L 94 94 08/12/21 08:00 111/62 91 08/12/21 07:21 08/12/21 04:29 94 Laboratory Results [facility] 08/12/21 05:42 Sodium 133 L Potassium 3.8 Chloride 98 Carbon Dioxide 32 BUN 18 Creatinine 0.88 Glucose 99 Calcium 9.2 Medications Administered Current Inpatient Medications Acetaminophen (Acetaminophen 500 Mg Tab) 1,000 mg PO Q6H PRN PRN Reason: FEVER/PAIN Stop: 09/02/21 22:46 Last Admin: 08/08/21 00:05 Dose: 1,000 mg Documented by: Albuterol (Albuterol Hfa 8 Gm Inhaler) 3 puffs INH Q4R PRN PRN Reason: Shortness Of Breath Or Wheezing Stop: 09/04/21 10:30 Baricitinib (4 Mg Once Daily X14 Days) 4 mg PO DAILY JAMES; Protocol Stop: 08/19/21 13:59 Last Admin: 08/12/21 08:07 Dose: 4 mg Documented by: Calcium Carbonate (Calcium Carbonate 500 Mg Chewable Tab) 1,000 mg PO TID PRN PRN Reason: Indigestion Stop: 09/03/21 12:03 Last Admin: 08/04/21 20:51 Dose: 1,000 mg Documented by: Enoxaparin Sodium (Enoxaparin Inj 40 Mg/0.4 Ml Syr) 40 mg SQ Q12H JAMES Stop: 09/03/21 20:59 Last Admin: 08/12/21 08:09 Dose: 40 mg Documented by: Furosemide (Furosemide 40 Mg/4 Ml Vial) 40 mg IV DAILY JAMES Stop: 09/03/21 14:59 Last Admin: 08/12/21 08:10 Dose: 40 mg Documented by: Guaifenesin (Guaifenesin 600 Mg Tabcr) 1,200 mg PO Q12 JAMES Stop: 09/03/21 20:59 Last Admin: 08/12/21 08:08 Dose: 1,200 mg Documented by: Hydroxyzine HCl (Hydroxyzine Hcl 10 Mg Tab) 10 mg PO Q8H PRN PRN Reason: Anxiety Stop: 09/06/21 11:26 Last Admin: 08/10/21 21:24 Dose: 10 mg Documented by: Ondansetron HCl (Ondansetron Inj 2 Mg/Ml 2 Ml Vial) 4 mg IV Q4H PRN PRN Reason: Nausea And Vomiting Stop: 09/02/21 22:37 Oxymetazoline HCl (Oxymetazoline 0.05% 30 Ml Btl) 1 sprays NA DAILY PRN PRN Reason: Nasal Congestion Stop: 09/07/21 04:29 Last Admin: 08/09/21 08:27 Dose: 1 sprays Documented by: Sodium Chloride (Sodium Chloride 0.65% Na Soln 45 Ml ([place])) 1 sprays NA NOW PRN PRN Reason: Dryness Stop: 09/06/21 09:11 Last Admin: 08/07/21 09:51 Dose: 1 sprays Documented by:
--- NOTE | 2021-08-13 19:36 | Discharge Summary ---
Date of Service August 13, 2021 Admission HPI Per Admitting Provider This is a 40 yo M without significant medical history who is unvaccinated for COVID-19 and contracted the virus. He developed symptoms on 07/25, with cough with mucous and high grade fever. Pt had a covid test done at home and resulted 07/27 as positive. Pt was seen for the first time in the ER on 07/31 due to worsening shortness of breath and was given decadron steroid pack and sent home as he was not hypoxic at that time. He then represented to the ER on 08/02 with chest pressure and worsening shortness of breath. He was not hypoxic, was in NSR during entire ER stay, and CTA was conducted to rule out PE and was negative. He was taking decardon and using a albuterol inhaler for management of his symptoms. Overnight he slept well, and felt he may be improving, but upon waking up was cool with a temp of 96.0. His pulse was low at that point. He noticed his pulse ox was at 92% at the lowest at home. Pt was walking ~10 feet today, felt SOB, sat down and he passed out for a few seconds. Denies trauma to the head or other injury. The event was witnessed by his . Patient was noted to have O2 sats in the 70s at that point in time, and she called EMS. Here in the ER he maintained sats at 93% on room air. He was given IV Decadron in the ER today. Pt lives at home with , two small children (ages 12 and 8). None of his family members have symptoms and are isolated. is vaccinated. He is unvaccinated. Family Hx: no known family hx of heart issues, stroke, DM II, lung diseases. Social Hx: does not drink more than a 6 pack of beer over course of a year. Smoked for a few years in college but does not smoke anymore. Denies illicit drug use. Admission Exam Per Admitting Provider On examination Flushed facies In distress Chestminimal crackles at the bases HeartS1-S2, regular Abdomenmildly distended, tender at epigastrium, bowel sounds present Extremitiesno edema Principal Diagnosis Pneumonia due to COVID-19 virus, borderline hyponatremia Discharge Exam Constitutional well developed, well nourished, + ill appearing and + obese Eyes PERRL, conjunctivae normal, anicteric sclerae ENMT external ear and nose normal, oropharynx normal Neck trachea midline, no thyromegaly Respiratory + respiratory distress, + labored breathing and + cough Auscultation: + diminished lung sounds; no crackles (At the bases) and no rales Cardiovascular Rate/Rhythm: regular rate and regular rhythm; not tachycardic Heart Sounds: normal S1 and normal S2; no murmur Gastrointestinal (Abdomen) Inspection/Auscultation: abdomen not distended Percussion/Palpation: abdomen soft; abdomen nontender Psychiatric A+Ox3, euthymic affect Discharge Data Allergies Allergy/AdvReac Type Severity Reaction Status Date / Time Sulfa (Sulfonamide Allergy Unknown HAPPENED Verified 08/03/21 17:50 Antibiotics) A CHILD SUTURE MATERIAL Allergy Intermediate HAPPENED Uncoded 08/03/21 17:50 WITH KNEE SURGERY-BAD REACTION Consultations 08/03/21 17:26 ED Decision to Admit Stat 08/05/21 09:30 Consult Pulmonology Routine Hospital Course (1) Pneumonia due to COVID-19 virus: -Not vaccinated for COVID-19 - COVID-19 positive on 07/27/2021 and also repeat test on admission -Was seen in ER on with increasing shortness of breath and was given Decadron and was sent home - Lymphocytes 0.76, neutrophils 9.96, CRP level is 9.86 and procalcitonin is normal as of 08/04/2021 -Repeat visit on 08/02 with more shortness of breath but was not hypoxic -Was admitted with increasing shortness of breath and as of today requiring up to 5 L of oxygen to maintain saturation - CXR reviewed: showing slight progression of bilateral opacities suggestive of viral pneumonia -Continue with remdesivir/Decadron. - C/w baricitinib. Appreciate pulmonary medicine input. Continue with IV Lasix 40 mg daily. Continue to monitor ins and outs along with daily weights. Cumulative balance is -2090. We will continue Lasix and supportive care Has been getting better but still requiring about 8 L of oxygen to maintain saturation Proning as advised Chest x-ray did not show any improvement but clinically he has been feeling much better He is much better today and has been saturating on room air at rest He underwent to do steps O2 saturation test and he will require 1 L of oxygen with ambulation He will be discharged home this afternoon (2) Syncope and collapse: -Check 2D echo: LV is normal in size, normal LV wall thickness, EF 60 to 65%, no significant valvular disease - Mag 2.2 on admission, TSH 2.41 - EKG reviewed without acute ST wave changes, no signs of ischemia. (3) Hypoxia: Currently remains on 10 L of nasal cannula. Reports shortness of breath is improved. (4) Hyponatremia: -Likely secondary to acute dehydration, continue IV fluids as above, monitor with a.m. labs -Today at 133 -Has been on Lasix and will monitor PRP -Sodium at 133 as of 08/08/2021 -Sodium remains minimally low at 133 (5) COVID-19: -As above, acute DVT prophylaxis: - teds, scds, Lovenox CODE: Full code He will be discharged home this afternoon Total Time Total Time Spent Total Time Spent (In Minutes): 35 minutes Discharge Plan Discharge Items Patient Disposition: Home - Self-Care Reason For Visit: COVID-19, SYNCOPAL EPISODE Discharge Diagnosis: Pneumonia due to COVID-19 virus, borderline hyponatremia Condition on Discharge: Fair Activity: Resume your previous activity Non-emergency contact: Primary Care Provider Call non-emergency contact if: you have any medication questions and your symptoms worsen Follow-up/Referrals: Sana Larose MD [Primary Care Provider] - (Your doctor's availability call you with an appointment within 7 days) Diet: Regular Addtl Attending Provider Instructions: Please take precautions to avoid fall Take it easy for the next week or so Follow the instructions for isolation for the nest 5 days as advised below Finish the medications as prescribed Please keep appointments with the healthcare provider You will need oxygen at a rate of 1 L via nasal cannula with ambulation Home Isolation COVID-19 Instructions The following information about Home Isolation is from the CDC Website: https://www.cdc.gov/coronavirus/2019-ncov/hcp/ctiiulam-rnmrtyc-eaybtu.html Stay home except to get medical care People who are mildly ill with COVID-19 are able to isolate at home during their illness. You should restrict activities outside your home, except for getting medical care. Do not go to work, school, or public areas. Avoid using public transportation, ride-sharing, or taxis. Separate yourself from other people and animals in your home People: As much as possible, you should stay in a specific room and away from other people in your home. Also, you should use a separate bathroom, if availab le. Animals: You should restrict contact with pets and other animals while you are sick with COVID-19, just like you would around other people. Although there have not been reports of pets or other animals becoming sick with COVID-19, it is still recommended that people sick with COVID-19 limit contact with animals until more information is known about the virus. When possible, have another member of your household care for your animals while you are sick. If you are sick with COVID-19, avoid contact with your pet, including petting, snuggling, being kissed or licked, and sharing food. If you must care for your pet or be around animals while you are sick, wash your hands before and after you interact with pets and wear a face mask. Call ahead before visiting your doctor If you have a medical appointment, call the healthcare provider and tell them that you have or may have COVID-19. This will help the healthcare providers office take steps to keep other people from getting infected or exposed. Wear a face mask You should wear a face mask when you are around other people (e.g., sharing a room or vehicle) or pets and before you enter a healthcare providers office. If you are not able to wear a face mask (for example, because it causes trouble breathing), then people who live with you should not stay in the same room with you, or they should wear a face mask if they enter your room. Cover your coughs and sneezes Cover your mouth and nose with a tissue when you cough or sneeze. Throw used tissues in a lined trash can. Immediately wash your hands with soap and water for at least 20 seconds or, if soap and water are not available, clean your hands with an alcohol-based hand braider tender that contains at least 60% alcohol. Clean your hands often Wash your hands often with soap and water for at least 20 seconds, especially after blowing your nose, coughing, or sneezing; going to the bathroom; and before eating or preparing food. If soap and water are not readily available, use an alcohol-based hand braider tender with at least 60% alcohol, covering all surfaces of your hands and rubbing them together until they feel dry. Soap and water are the best option if hands are visibly dirty. Avoid touching your eyes, nose, and mouth with unwashed hands. Avoid sharing personal household items You should not share dishes, drinking glasses, cups, eating utensils, towels, or bedding with other people or pets in your home. After using these items, they should be washed thoroughly with soap and water. Clean all high-touch surfaces everyday High touch surfaces include counters, tabletops, doorknobs, bathroom fixtures, toilets, phones, keyboards, tablets, and bedside tables. Also, clean any surfaces that may have blood, stool, or body fluids on them. Use a household cleaning spray or wipe, according to the label instructions. Labels contain instructions for safe and effective use of the cleaning product including precautions you should take when applying the product, such as wearing gloves an d making sure you have good ventilation during use of the product. Monitor your symptoms Seek prompt medical attention if your illness is worsening (e.g., difficulty breathing).Beforeseeking care, call your healthcare provider and tell them that you have, or are being evaluated for, COVID-19. Put on a face mask before you enter the facility. These steps will help the healthcare providers office to keep other people in the office or waiting room from getting infected or exposed. Ask your healthcare provider to call the local or state health department. Persons who are placed under active monitoring or facilitated self- monitoring should follow instructions provided by their local health department or occupational health professionals, as appropriate. When working with your local health department check their available hours. If you have a medical emergency and need to call 911, notify the dispatch personnel that you have, or are being evaluated for COVID-19. If possible, put on a face mask before emergency medical services arrive. Discontinuing home isolation Patients with confirmed COVID-19 should remain under home isolation precautions until the risk of secondary transmission to others is thought to be low. The decision to discontinue home isolation precautions should be made on a tbca-ng-frul basis, in consultation with healthcare providers and state and local health departments. Pending Studies at Discharge: No Stand-Alone Forms: [facility], Smoking Cessation Medications and DC Order Prescriptions: New guaifenesin [Mucinex] 600 mg Tablet Extended Release 12hr 1,200 mg PO Q12 7 Days Qty: 28 RF: 0 Olumiant 2 mg Tablet 4 mg PO DAILY 5 Days Qty: 10 RF: 0 Continued acetaminophen [Tylenol Extra Strength] 500 mg Tablet 1,000 mg PO Q6H PRN (Reason: FEVER/PAIN) RF: 0 ibuprofen [Advil] 200 mg Tablet 400 mg PO Q6H PRN (Reason: FEVER/PAIN) RF: 0 albuterol sulfate 90 mcg/actuation HFA aerosol inhaler 3 inh inhalation Q6H Qty: 18 RF: 2 Discontinued dexamethasone [Decadron] 6 mg tablet 6 mg PO DAILY Qty: 6 RF: 0 Discharge Orders: Discharge Order (Routine); Ordered 08/12/21 Ordered By: Claudia Benitez Admission Data Admit Date/Time: 08/03/21 17:53 Attending Provider: Claudia Benitez Admit Provider: Claudia Benitez Primary Care Provider: Sana Larose Other Providers: Claudia Benitez ; Nestor Godwin Muhammad J. Other Interventions: Discharge Summary Assessment (RN) Last Done: 08/12/21 13:39
== END 2021-08-12 14:35 | disposition home or self-care (01) | DRG 177 ==
LOC: ED 14:12 → 2E 17:53 → SUATTDRO 17:53 → 2E 22:03